=== PATIENT | male | born 1975 | race Two or more races ===

== ENCOUNTER 2019-03-06 18:44 | Inpatient (IN) | payer OTHER ==
[2019-03-06 21:36] VITALS: BMI 20.9
--- NOTE | 2019-03-06 22:15 | HP ---
COWS - Scale Resting Pulse: 0= [place] 80 or Below Sweatin=Flushed/Facial Moisture Restless Observation: 1= Difficult to Sit Still Pupil Size: 1= Pupils >than Normal Bone or Joint Aches: 2= Severe Diffuse Aches Runny Nose/ Eye Tearin= Nasal Congestion GI Upset > 30mins: 2= Nausea/Diarrhea Tremor Observation: 2= Slight Tremor Visible Yawning Observation: 1= 1-2x During Session Anxiety or Irritability: 1=Feels Anxious/Irritable Goose Flesh Skin: 0=Smooth Skin COWS Score: 13 CIWA Score Nausea/Vomitin Muscle Tremors: 2 Anxiety: 2 Agitation: 2 Paroxysmal Sweats: 1-Minimal Palms Moist Orientation: 0-Oriented Tacttile Disturbances: 3-Moderate Itch/Numb/Burn Auditory Disturbances: 2-Mild Harshness/Frighten Visual Disturbances: 2-Mild Sensitivity Headache: 2-Mild CIWA-Ar Total Score: 18 - Admission Criteria OASAS Guidelines: Admission for Medically Managed Detox: Requires at least one of the followin. CIWA greater than 12 2. Seizures within the past 24 hours 3. Delirium tremens within the past 24 hours 4. Hallucinations within the past 24 hours 5. Acute intervention needed for co occurring medical disorder 6. Acute intervention needed for co occurring psychiatric disorder 7. Severe withdrawal that cannot be handled at a lower level of care (continued vomiting, continued diarrhea, abnormal vital signs) requiring intravenous medication and/or fluids 8. Admission ROS [facility] - HPI Chief Complaint: DEPENDENT ON HEROIN, ETOH, COCAINE AND MARIJUANA Allergies/Adverse Reactions: Allergies Allergy/AdvReac Type Severity Reaction Status Date / Time No Known Allergies Allergy Verified 03/06/19 21:31 History of Present Illness: THE PT. IS REQUESTING ADMISSION TO THE DETOX UNIT AND CAME FOR MEDICAL CLEARANCE AND H AND PE Exam Limitations: No Limitations - Ebola screening Have you traveled outside of the country in the last 21 days: No Have you had contact with anyone from an Ebola affected area: No Have you been sick,other than usual withdrawal symptoms: No Do you have a fever: No - Review of Systems Constitutional: See HPI, Loss of Appetite, Malaise, Weakness, Unexplained wgt Loss EENT: reports: See HPI Respiratory: reports: See HPI Cardiac: reports: See HPI GI: reports: See HPI, Nausea, Poor Appetite, Poor Fluid Intake, Abdominal cramping : reports: See HPI Musculoskeletal: reports: See HPI, Muscle Pain, Muscle Weakness Integumentary: reports: See HPI, Pruritus, Sweating Neuro: reports: See HPI, Headache, Tremors, Weakness Endocrine: reports: See HPI Hematology: reports: See HPI Psychiatric: reports: Judgement Intact, Orientated x3, Anxious, Depressed Patient History - Patient Medical History Hx Anemia: Yes (possible ) Hx Asthma: No Hx Chronic Obstructive Pulmonary Disease (COPD): No Hx Cancer: No Hx Cardiac Disorders: No Hx Congestive Heart Failure: No Hx Hypertension: No Hx Hypercholesterolemia: No Hx Pacemaker: No HX Cerebrovascular Accident: No Hx Seizures: No Hx Dementia: No Hx Diabetes: No Hx Gastrointestinal Disorders: No Hx Liver Disease: No Hx Genitourinary Disorders: No Hx Sexually Transmitted Disorders: No Hx Renal Disease (ESRD): No Hx Thyroid Disease: No Hx Human Immunodeficiency Virus (HIV): No Hx Hepatitis C: No Hx Depression: Yes (AND ANXIETY) Hx Suicide Attempt: No Hx Schizophrenia: Yes (on medication) - Patient Surgical History Past Surgical History: Yes Hx Neurologic Surgery: No Hx Cataract Extraction: No Hx Cardiac Surgery: No Hx Lung Surgery: No Hx Breast Surgery: No Hx Breast Biopsy: No Hx Abdominal Surgery: No Hx Appendectomy: No Hx Cholecystectomy: No Hx Genitourinary Surgery: No Hx Section: No Hx Orthopedic Surgery: Yes (LEFT LEG) Anesthesia Reaction: No - PPD History Date: 02/08/16 Results: 0 mm - Smoking Cessation Smoking history: Current every day smoker Have you smoked in the past 12 months: Yes Aproximately how many cigarettes per day: 20 Cigars Per Day: 0 Hx Chewing Tobacco Use: No Initiated information on smoking cessation: Yes 'Breaking Loose' booklet given: 03/06/19 - Substance & Tx. History Hx Alcohol Use: Yes Hx Substance Use: Yes Substance Use Type: Alcohol, Cocaine, Heroin, Marijuana Hx Substance Use Treatment: Yes - Substances abused Alcohol Substance route: Oral Frequency: Daily Amount used: 2 PINTS VODKA Age of first use: 18 Date of last use: 03/06/19 Cocaine Substance route: Smoking Frequency: Daily Amount used: 3 BAGS Age of first use: 25 Date of last use: 03/05/19 Heroin Substance route: Inhalation Frequency: Daily Amount used: 4 B/D Age of first use: 35 Date of last use: 03/06/19 Marijuana/Hashish Substance route: Smoking Frequency: Daily Amount used: 2 B/D Age of first use: 25 Date of last use: 03/06/19 Family Disease History - Family Disease History Family Disease History: Other: Father (alcohol dependence ) Admission Physical Exam [facility] - Vital Signs Vital Signs: Vital Signs - 24 hr 03/06/19 03/06/19 21:29 21:51 Temperature 97.1 F L 97.1 F L Pulse Rate 62 62 Respiratory 18 18 Rate Blood Pressure 111/76 111/76 - Physical General Appearance: Yes: No Apparent Distress, Appropriately Dressed, Thin, Tremorous, Sweating, Anxious HEENTM: Yes: Hearing grossly Normal, Normocephalic, Normal Voice, CARYN, Pharynx Normal Respiratory: Yes: Chest Non-Tender, Lungs Clear, Normal Breath Sounds, No Respiratory Distress, No Accessory Muscle Use Neck: Yes: No masses,lesions,Nodules, Supple, Trachea in good position Breast: Yes: Breast Exam Deferred, Axillae without masses Cardiology: Yes: Regular Rhythm, Regular Rate, S1, S2 Abdominal: Yes: Normal Bowel Sounds, Non Tender, Flat, Soft Back: Yes: Normal Inspection Musculoskeletal: Yes: full range of Motion, Gait Steady, Pelvis Stable, Muscle Pain, Muscle weakness Extremities: Yes: Normal Capillary Refill, Normal Range of Motion, Non-Tender, Tremors Neurological: Yes: machine fixer II-XII NML intact, Fully Oriented, Alert, Motor Strength 5/5, Normal Mood/Affect, Normal Response Integumentary: Yes: Normal Color, Warm, Moist Lymphatic: Yes: Within Normal Limits - Diagnostic (1) Heroin dependence Current Visit: Yes Status: Chronic (2) Anxiety and depression Current Visit: Yes Status: Chronic (3) Alcohol dependence with uncomplicated withdrawal Current Visit: No Status: Chronic (4) Nicotine dependence Current Visit: No Status: Acute (5) Cannabis dependence, uncomplicated Current Visit: No Status: Chronic (6) Cocaine dependence, uncomplicated Current Visit: No Status: Chronic (7) Schizophrenia Current Visit: No Status: Chronic Qualifiers: Schizophrenia type: unspecified Qualified Code(s): F20.9 - Schizophrenia, unspecified Cleared for Admission [facility] - Detox or Rehab [facility] Level of Care: Medically Supervised Detox Regimen/Protocol: Methadone/Librium Breathalyzer - Breathalyzer Breathalyzer: 0 Urine Drug Screen - Test Device Lot number: [id number] Expiration date: 10/07/20 - Control Is test valid?: Yes - Results Drug screen NEGATIVE: No Urine drug screen results: THC-Marijuana, LADAN-Cocaine, MET-Methamphetamine, MTD- Methadone, BZO-Benzodiazepines Inpatient Rehab Admission - Rehab Decision to Admit Inpatient rehab admission?: No
[2019-03-06] MEDS ORDERED: MENTHOL/PHENOL 1 EACH UD MM PRN (22:20)
[2019-03-06] MEDS ORDERED: NICOTINE POLACRILEX 4 MG GUM BUC PRN (22:20)
[2019-03-06] MEDS ORDERED: cloNIDine HCL 0.1 MG TABLET PO PRN (22:20)
[2019-03-06] MEDS ORDERED: ACETAMINOPHEN 325 MG TABLET (FP) PO PRN ×2 (22:20)
[2019-03-06] MEDS ORDERED: hydrOXYzine PAMOATE 25 MG CAPSULE (FP) PO PRN (22:20)
[2019-03-06] MEDS ORDERED: BISMUTH SUBSALICYLATE 524 MG/30 ML UD PO PRN (22:20)
[2019-03-06] MEDS ORDERED: MAGNESIUM HYDROX 2400MG/30ML ORAL SUSPENSION 30 ML CUP PO PRN (22:20)
[2019-03-06] MEDS ORDERED: chlordiazePOXIDE HCL 10 MG CAPSULE PO PRN (22:20)
[2019-03-06] MEDS ORDERED: METHOCARBAMOL 500 MG TABLET PO PRN (22:20)
[2019-03-06] MEDS ORDERED: MAGNESIUM CITRATE 300 ML BOTTLE PO PRN (22:20)
[2019-03-06] MEDS ORDERED: METHADONE HCL 10 MG TABLET (FOR DETOX USE ONLY) PO ONE (23:00)
[2019-03-06] MEDS: chlordiazePOXIDE HCL 25 MG CAPSULE PO SCH (23:44)
[2019-03-07] MEDS: chlordiazePOXIDE HCL 25 MG CAPSULE PO SCH ×2 (05:07→13:00)
[2019-03-07 09:54] LABS: ALBUMIN 3.5 g/dl (3.4-5.0); ALK PHOS 87 U/L (45-117); ANION GAP 4 MMOL/L (8-16); BILIRUBIN,TOTAL 0.6 mg/dL (0.2-1); BLOOD UREA NITROGEN 19 mg/dL (7-18); CALCIUM 9.2 mg/dL (8.5-10.1); CHLORIDE 101 mmol/L (98-107); CO2 31 mmol/L (21-32); CREATININE 1.2 mg/dL (0.55-1.3); GLUCOSE,RANDOM 83 mg/dL (74-106); POTASSIUM 4.8 mmol/L (3.5-5.1); SGOT/AST 24 U/L (15-37); SGPT/ALT 28 U/L (13-61); SODIUM 136 mmol/L (136-145); TOT PROT 6.7 g/dl (6.4-8.2)
[2019-03-07 09:58] LABS: HEMATOCRIT 41.9 % (35.4-49); HEMOGLOBIN 13.9 GM/dL (11.7-16.9); MCH 29.7 pg (25.7-33.7); MCHC 33.3 g/dl (32.0-35.9); MEAN CELL VOLUME 89.4 fl (80-96); MEAN PLT VOLUME 8.8 fl (7.5-11.1); PLATELET COUNT 223 K/MM3 (134-434); RBC 4.69 M/mm3 (4.00-5.60); RDW 14.9 % (11.9-15.9); WHITE BLOOD COUNT 3.7 K/mm3 (4.0-10.0)
[2019-03-07] MEDS ORDERED: METHADONE HCL 5 MG TABLET (FOR DETOX USE ONLY) PO ONE (10:00)
[2019-03-07] MEDS: PRENATAL VITAMINS W/ FOLIC ACID TABLET (FP) PO SCH (10:12)
[2019-03-07] MEDS: NICOTINE 21 MG/24 HOURS TOPICAL PATCH TD SCH (10:12)
--- NOTE | 2019-03-07 11:08 | PN ---
[facility] CIWA - CIWA Score Nausea/Vomitin-No Nausea/No Vomiting Muscle Tremors: 3 Anxiety: 3 Agitation: 3 Paroxysmal Sweats: 3 Orientation: 0-Oriented Tacttile Disturbances: 0-None Auditory Disturbances: 0-None Visual Disturbances: 0-None Headache: 0-None Present CIWA-Ar Total Score: 12 [facility] COWS - Scale Resting Pulse: 0= [place] 80 or Below Sweatin=Flushed/Facial Moisture Restless Observation: 1= Difficult to Sit Still Pupil Size: 0= Normal to Room Light Bone or Joint Aches: 2= Severe Diffuse Aches Runny Nose/ Eye Tearin= Nasal Congestion GI Upset > 30mins: 2= Nausea/Diarrhea Tremor Observation of Outstretched Hands: 2= Slight Tremor Visible Yawning Observation: 2= >3x During Session Anxiety or Irritability: 2=Irritable/Anxious Goose Flesh Skin: 0=Smooth Skin COWS Score: 14 S Progress Note (SOAP) Subjective: sweats shakes interrupted sleep body aches irritable Objective: 03/07/19 11:15 Vital Signs Temperature 97.7 F 03/07/19 10:27 Pulse Rate 64 03/07/19 10:27 Respiratory Rate 16 03/07/19 10:27 Blood Pressure 114/80 03/07/19 10:27 O2 Sat by Pulse Oximetry (%) Laboratory Tests 03/07/19 03/07/19 07:00 07:00 WBC 3.7 L RBC 4.69 Hgb 13.9 Hct 41.9 MCV 89.4 MCH 29.7 MCHC 33.3 RDW 14.9 Plt Count 223 MPV 8.8 Sodium 136 Potassium 4.8 Chloride 101 Carbon Dioxide 31 Anion Gap 4 L BUN 19 H Creatinine 1.2 Creat Clearance w eGFR 66.08 Random Glucose 83 Calcium 9.2 Total Bilirubin 0.6 AST 24 ALT 28 Alkaline Phosphatase 87 Total Protein 6.7 Albumin 3.5 aaox3 ambulating no acute distress Assessment: 03/07/19 11:17 withdrawal sx Plan: continue detox increase fluids
[2019-03-07] MEDS: IBUPROFEN 400 MG TABLET (FP) PO PRN ×2 (12:59→18:58)
[2019-03-07] MEDS: MAG HYDROX/AL HYDROX/SIMETH 30 ML UNIT-DOSE CUP PO PRN (18:58)
[2019-03-07] MEDS: THIAMINE HCL 100 MG TABLET (FP) PO SCH (22:19)
[2019-03-07] MEDS: chlordiazePOXIDE 5 MG CAPSULE PO SCH (22:19)
[2019-03-07] MEDS: MELATONIN 5 MG TABLETS PO PRN (22:20)
[2019-03-08] MEDS: IBUPROFEN 400 MG TABLET (FP) PO PRN (01:02)
[2019-03-08] MEDS: MAG HYDROX/AL HYDROX/SIMETH 30 ML UNIT-DOSE CUP PO PRN (01:03)
[2019-03-08] MEDS: chlordiazePOXIDE 5 MG CAPSULE PO SCH ×2 (05:50→13:42)
[2019-03-08] MEDS ORDERED: METHADONE HCL 10 MG TABLET (FOR DETOX USE ONLY) PO ONE (10:00)
[2019-03-08] MEDS: NICOTINE 21 MG/24 HOURS TOPICAL PATCH TD SCH (10:02)
[2019-03-08] MEDS: PRENATAL VITAMINS W/ FOLIC ACID TABLET (FP) PO SCH (10:03)
--- NOTE | 2019-03-08 10:59 | PN ---
[facility] CIWA - CIWA Score Nausea/Vomitin-No Nausea/No Vomiting Muscle Tremors: 3 Anxiety: 2 Agitation: 3 Paroxysmal Sweats: 3 Orientation: 0-Oriented Tacttile Disturbances: 0-None Auditory Disturbances: 0-None Visual Disturbances: 0-None Headache: 0-None Present CIWA-Ar Total Score: 11 S COWS - Scale Resting Pulse: 0= [place] 80 or Below Sweatin=Flushed/Facial Moisture Restless Observation: 1= Difficult to Sit Still Pupil Size: 0= Normal to Room Light Bone or Joint Aches: 2= Severe Diffuse Aches Runny Nose/ Eye Tearin= None GI Upset > 30mins: 0= None Tremor Observation of Outstretched Hands: 1= Tremor [place], Not Seen Yawning Observation: 1= 1-2x During Session Anxiety or Irritability: 1=Feels Anxious/Irritable Goose Flesh Skin: 0=Smooth Skin COWS Score: 8 [facility] Progress Note (SOAP) Subjective: foot pain sweats shakes body aches feet pain Objective: 03/08/19 10:58 Vital Signs Temperature 97.3 F L 03/08/19 09:09 Pulse Rate 62 03/08/19 09:09 Respiratory Rate 18 03/08/19 09:09 Blood Pressure 124/61 03/08/19 09:09 O2 Sat by Pulse Oximetry (%) Laboratory Tests 03/07/19 03/07/19 03/07/19 07:00 07:00 07:00 WBC 3.7 L RBC 4.69 Hgb 13.9 Hct 41.9 MCV 89.4 MCH 29.7 MCHC 33.3 RDW 14.9 Plt Count 223 MPV 8.8 Sodium 136 Potassium 4.8 Chloride 101 Carbon Dioxide 31 Anion Gap 4 L BUN 19 H Creatinine 1.2 Creat Clearance w eGFR 66.08 Random Glucose 83 Calcium 9.2 Total Bilirubin 0.6 AST 24 ALT 28 Alkaline Phosphatase 87 Total Protein 6.7 Albumin 3.5 RPR Titer Nonreactive aaox3 ambulating no acute distress Assessment: 03/08/19 10:59 withdrawal sx Plan: continue detox increase fluids motrin 800mg tid prn
[2019-03-08] MEDS ORDERED: IBUPROFEN 400 MG TABLET (FP) PO PRN (11:00)
[2019-03-08] MEDS ORDERED: chlordiazePOXIDE HCL 10 MG CAPSULE PO PRN (21:00)
[2019-03-08] MEDS: THIAMINE HCL 100 MG TABLET (FP) PO SCH (22:15)
[2019-03-08] MEDS: MELATONIN 5 MG TABLETS PO PRN (22:15)
[2019-03-08] MEDS: chlordiazePOXIDE HCL 10 MG CAPSULE PO SCH (22:15)
[2019-03-09] MEDS: MAG HYDROX/AL HYDROX/SIMETH 30 ML UNIT-DOSE CUP PO PRN (01:32)
[2019-03-09] MEDS: chlordiazePOXIDE HCL 10 MG CAPSULE PO SCH ×2 (05:50→22:14)
[2019-03-09] MEDS ORDERED: METHADONE HCL 5 MG TABLET (FOR DETOX USE ONLY) PO ONE (06:00)
--- NOTE | 2019-03-09 09:21 | DS ---
[facility] Detox Discharge Summary Admission Date: 03/06/19 Discharge Date: 03/09/19 - History Present History: Alcohol Dependence, Cannabis Dependence, Cocaine Dependence, Opioid Dependence - Physical Exam Results Vital Signs: Vital Signs Temperature 97.3 F L 03/09/19 06:29 Pulse Rate 50 L 03/09/19 06:29 Respiratory Rate 16 03/09/19 06:29 Blood Pressure 141/91 03/09/19 06:29 O2 Sat by Pulse Oximetry (%) - Treatment Hospital Course: Detox Protocol Followed, Detoxed Safely, Responded well, Discharged Condition Good, Rehab Referral Accepted - Medication Discharge Medications: Ambulatory Orders Divalproex [Depakote -] 500 mg PO BID #60 tablet.ec 02/07/16 Haloperidol [Haldol -] 5 mg PO DAILY #30 tablet 02/07/16 Quetiapine Fumarate [Seroquel -] 100 mg PO HS #30 tab 03/03/16 - Diagnosis (1) Anxiety and depression Current Visit: Yes Status: Chronic (2) Heroin dependence Current Visit: Yes Status: Chronic (3) Nicotine dependence Current Visit: Yes Status: Chronic Qualifiers: Nicotine product type: cigarettes Substance use status: uncomplicated Qualified Code(s): F17.210 - Nicotine dependence, cigarettes, uncomplicated (4) Alcohol dependence with uncomplicated withdrawal Current Visit: Yes Status: Chronic (5) Cannabis dependence, uncomplicated Current Visit: Yes Status: Chronic (6) Cocaine dependence, uncomplicated Current Visit: Yes Status: Chronic (7) Schizophrenia Current Visit: No Status: Chronic Qualifiers: Schizophrenia type: unspecified Qualified Code(s): F20.9 - Schizophrenia, unspecified - AMA Did Patient Leave Against Medical Advice: No ([facility])
[2019-03-09] MEDS ORDERED: chlordiazePOXIDE HCL 10 MG CAPSULE PO ONE (10:00)
[2019-03-09] MEDS: PRENATAL VITAMINS W/ FOLIC ACID TABLET (FP) PO SCH (10:15)
[2019-03-09] MEDS: NICOTINE 21 MG/24 HOURS TOPICAL PATCH TD SCH (10:18)
--- NOTE | 2019-03-09 11:19 | CONSULT ---
[facility] Psychiatric Consult - Data Date of interview: 03/09/19 Identifying data: Mr Arango is a 43 years old [place]-born male, unemployed receiving SSI, living in a room in [facility] seeking detox treatment for alcohol opioid, cocaine and cannabis Substance Abuse History: Reports history of alcohol, heroin, cocaine and marijuana use. Refer to addiction counselor's summary for further information Medical History: Significant for anemia, history of surgery on left leg. Smokes cigarettes 1 ppd Psychiatric History: Reports that his first psychiatric contact was at age 20 when he was admitted to [facility] for hearing voices and feeling paranoid like he was being followed. He was diagnosed diagnosed with Paranoid Schizophrenia and prescribed Haldol. Denies any subsequent psychiatric hospitalization. Reports sub optimal adherence to OPD care and medications. Reports he only received outpatient psychiatric treatment at [facility] where he attended for 6 years after his discharge from [facility]. Inpatient detox/rehab and residential program were the places where he has been receiving psychiatric care since. Reports that he was last prescribed medications [facility]. This is verified by external medication search showing scripts for 5 days supply of Haldol 5mg BID, Depakote 500 mg BID and Cogentin 1 mg BID prescribed by Tianna Harrison and filled on 02/27/19 at [facility]. Denies previous suicidal attempt. At present, denies experiencing psychotic, depressive symptoms, S/H ideations. However, reports sleeping poorly Physical/Sexual Abuse/Trauma History: Denies history of emotional, physical or sexual abuse as well as DV relationship. No service Additional Comment: Reports history of a few misdemeanor arrests on charges of drug possession. Denies being on probation or having an open case Mental Status Exam - Mental Status Exam Alert and Oriented to: Place, Person Cognitive Function: Fair Patient Appearance: Well Groomed Mood: Anxious Affect: Appropriate Patient Behavior: Cooperative Speech Pattern: Clear Voice Loudness: Normal Thought Process: Intact, Goal Oriented Thought Disorder: Not Present Hallucinations: Denies Suicidal Ideation: Denies Homicidal Ideation: Denies Insight/Judgement: Poor Sleep: Poorly Appetite: Poor Muscle strength/Tone: Normal Gait/Station: Normal Psychiatric Findings - Problem List ([place] 1, 2,3) (1) Paranoid schizophrenia Current Visit: Yes Status: Chronic (2) Substance-induced anxiety disorder Current Visit: Yes Status: Acute (3) Substance-induced sleep disorder Current Visit: Yes Status: Acute (4) Alcohol dependence with uncomplicated withdrawal Current Visit: Yes Status: Acute (5) Uncomplicated opioid dependence Current Visit: Yes Status: Acute (6) Cocaine dependence, uncomplicated Current Visit: Yes Status: Acute (7) Cannabis dependence, uncomplicated Current Visit: Yes Status: Acute (8) Nicotine dependence Current Visit: Yes Status: Chronic Qualifiers: Nicotine product type: cigarettes Substance use status: uncomplicated Qualified Code(s): F17.210 - Nicotine dependence, cigarettes, uncomplicated (9) Anemia Current Visit: Yes Status: Resolved - Initial Treatment Plan Initial Treatment Plan: 1) Resume Haldol 5 mg po BID, Cogentin 1 mg po BID and Depakote 500 mg po BID. 2) Continue inpatient detoxification
[2019-03-09] MEDS: BENZTROPINE MESYLATE 1 MG TABLET (FP) PO SCH ×2 (11:50→22:14)
[2019-03-09] MEDS: HALOPERIDOL 5 MG TABLET (FP) PO SCH ×2 (11:50→22:14)
[2019-03-09] MEDS: DIVALPROEX SODIUM 500 MG TABLET E.C. PO SCH ×2 (11:50→22:14)
[2019-03-09] MEDS: THIAMINE HCL 100 MG TABLET (FP) PO SCH (22:14)
[2019-03-09] MEDS: MELATONIN 5 MG TABLETS PO PRN (22:15)
--- NOTE | 2019-03-10 07:40 | PN ---
[facility] Progress Note Note: Patient is scheduled for discharge today. Scripts for 30 days supply of medications(Haldol 5 mg/bid, Depakote 500 mg/bid, Cogentin 1 mg/bid) are electronically transmitted to [facility] at [address] [place] [address]
[2019-03-10 09:30] VITALS: BP 122/72; PULSE 76; TEMP 97.7
[2019-03-10] MEDS: HALOPERIDOL 5 MG TABLET (FP) PO SCH (09:38)
[2019-03-10] MEDS: DIVALPROEX SODIUM 500 MG TABLET E.C. PO SCH (09:38)
[2019-03-10] MEDS: PRENATAL VITAMINS W/ FOLIC ACID TABLET (FP) PO SCH (09:38)
[2019-03-10] MEDS: BENZTROPINE MESYLATE 1 MG TABLET (FP) PO SCH (09:39)
[2019-03-10] MEDS: NICOTINE 21 MG/24 HOURS TOPICAL PATCH TD SCH (10:55)
[2019-03-10] MEDS: chlordiazePOXIDE HCL 10 MG CAPSULE PO SCH (10:57)
--- NOTE | 2019-03-10 18:53 | DS ---
[facility] Detox Discharge Summary Admission Date: 03/06/19 Discharge Date: 03/10/19 - History Present History: Alcohol Dependence, Cannabis Dependence, Cocaine Dependence, Opioid Dependence Additional Comments: PATIENT GOING TO [facility] ([place], [place]) FOR AFTERCARE. PATIENT WAS DISCHARGED FROM DISCHARGED FROM DETOX UNIT IN STABLE MEDICAL CONDITION. Pertinent Past History: History Of Anemia, Depression, Anxiety, (Paranoid) Schizophrenia. - Physical Exam Results Vital Signs: Vital Signs Temperature 97.7 F 03/10/19 09:30 Pulse Rate 76 03/10/19 09:30 Respiratory Rate 16 03/10/19 09:30 Blood Pressure 122/72 03/10/19 09:30 O2 Sat by Pulse Oximetry (%) Pertinent Admission Physical Exam Findings: WITHDRAWAL SYMPTOMS. Laboratory Tests 03/07/19 03/07/19 03/07/19 07:00 07:00 07:00 WBC 3.7 L RBC 4.69 Hgb 13.9 Hct 41.9 MCV 89.4 MCH 29.7 MCHC 33.3 RDW 14.9 Plt Count 223 MPV 8.8 Sodium 136 Potassium 4.8 Chloride 101 Carbon Dioxide 31 Anion Gap 4 L BUN 19 H Creatinine 1.2 Creat Clearance w eGFR 66.08 Random Glucose 83 Calcium 9.2 Total Bilirubin 0.6 AST 24 ALT 28 Alkaline Phosphatase 87 Total Protein 6.7 Albumin 3.5 RPR Titer Nonreactive LABS NOTED. - Treatment Hospital Course: Detox Protocol Followed, Detoxed Safely, Responded well, Discharged Condition Good, Rehab Referral Accepted Patient has Accepted a Rehab Referral to: [facility] ([place], [place]). - Medication Discharge Medications: Ambulatory Orders Divalproex [Depakote -] 500 mg PO BID #60 tablet.ec 02/07/16 Haloperidol [Haldol -] 5 mg PO DAILY #30 tablet 02/07/16 Quetiapine Fumarate [Seroquel -] 100 mg PO HS #30 tab 03/03/16 Benztropine Mesylate [Cogentin -] 1 mg PO BID #60 tablet 03/10/19 Divalproex [Depakote -] 500 mg PO BID #60 tablet.ec 03/10/19 Haloperidol [Haldol -] 5 mg PO BID #60 tablet 03/10/19 - Diagnosis (1) Alcohol dependence with uncomplicated withdrawal Status: Acute (2) Cannabis dependence, uncomplicated Status: Acute (3) Cocaine dependence, uncomplicated Status: Acute (4) Anxiety and depression Status: Chronic (5) Heroin dependence Status: Chronic (6) Nicotine dependence Status: Chronic Qualifiers: Nicotine product type: cigarettes Substance use status: uncomplicated Qualified Code(s): F17.210 - Nicotine dependence, cigarettes, uncomplicated (7) Substance-induced anxiety disorder Status: Acute (8) Substance-induced sleep disorder Status: Acute (9) Paranoid schizophrenia Status: Chronic (10) Anemia Status: Resolved Qualifiers: Anemia type: unspecified type Qualified Code(s): D64.9 - Anemia, unspecified - AMA Did Patient Leave Against Medical Advice: No
== END 2019-03-10 11:27 | disposition home or self-care (01) | DRG 773 ==
LOC: YASAS 18:44 → Y6N 22:40
PROVIDERS: ADMIT Surgery; ATTEND Surgery
PROC: HZ2ZZZZ Detoxification Services for Substance Abuse Treatment (ICD-10-PCS; principal; 2019-03-06)
DX: F11.23 Opioid dependence with withdrawal (principal); F10.230 Alcohol dependence with withdrawal, uncomplicated; F14.20 Cocaine dependence, uncomplicated; F12.20 Cannabis dependence, uncomplicated; F17.210 Nicotine dependence, cigarettes, uncomplicated; F20.0 Paranoid schizophrenia; F19.280 Other psychoactive substance dependence with psychoactive substance-induced anxiety disorder; F19.282 Other psychoactive substance dependence with psychoactive substance-induced sleep disorder; F32.9 Major depressive disorder, single episode, unspecified; F41.8 Other specified anxiety disorders; D64.9 Anemia, unspecified
CPT/HCPCS: 36415; 80053; 85027; 86593

== ENCOUNTER 2019-04-24 16:13 | Inpatient (IN) | payer OTHER ==
[2019-04-24 20:49] VITALS: BMI 22.3
--- NOTE | 2019-04-24 23:01 | HP ---
CIWA Score - Admission Criteria [facility] Guidelines: Admission for Medically Managed Detox: Requires at least one of the followin. CIWA greater than 12 2. Seizures within the past 24 hours 3. Delirium tremens within the past 24 hours 4. Hallucinations within the past 24 hours 5. Acute intervention needed for co occurring medical disorder 6. Acute intervention needed for co occurring psychiatric disorder 7. Severe withdrawal that cannot be handled at a lower level of care (continued vomiting, continued diarrhea, abnormal vital signs) requiring intravenous medication and/or fluids 8. Admission ROS S - HPI Chief Complaint: Seeking admission to Rehab. Allergies/Adverse Reactions: Allergies Allergy/AdvReac Type Severity Reaction Status Date / Time No Known Allergies Allergy Verified 03/06/19 21:31 History of Present Illness: 43 years old male with a long history of alcohol, crack cocaine and marijuana dependence is seeking admission to detox. Patient has been in previous detox. He has history of anemia, depression and schizophrenia. He denies suicidal ideation at this time. Exam Limitations: No Limitations - Ebola screening Have you traveled outside of the country in the last 21 days: No Have you had contact with anyone from an Ebola affected area: No Have you been sick,other than usual withdrawal symptoms: No Do you have a fever: No - Review of Systems Constitutional: No Symptoms Reported EENT: reports: No Symptoms Reported Respiratory: reports: No Symptoms reported Cardiac: reports: No Symptoms Reported GI: reports: No Symptoms Reported : reports: No Symptoms Reported Musculoskeletal: reports: No Symptoms Reported Integumentary: reports: No Symptoms Reported Neuro: reports: No Symptoms reported Endocrine: reports: No Symptoms Reported Hematology: reports: No Symptoms Reported Psychiatric: reports: No Sypmtoms Reported, Mood/Affect Appropiate Other Systems: Reviewed and Negative Patient History - Patient Medical History Hx Anemia: Yes (Ferrous Sulfate) Hx Asthma: No Hx Chronic Obstructive Pulmonary Disease (COPD): No Hx Cancer: No Hx Cardiac Disorders: No Hx Congestive Heart Failure: No Hx Hypertension: No Hx Hypercholesterolemia: No Hx Pacemaker: No HX Cerebrovascular Accident: No Hx Seizures: No Hx Dementia: No Hx Diabetes: No Hx Gastrointestinal Disorders: No Hx Liver Disease: No Hx Genitourinary Disorders: No Hx Sexually Transmitted Disorders: No Hx Renal Disease (ESRD): No Hx Thyroid Disease: No Hx Human Immunodeficiency Virus (HIV): No Hx Hepatitis C: No Hx Depression: Yes (Seroquel) Hx Suicide Attempt: No Hx Schizophrenia: Yes (Haldol, cogentin, Depakote) Other Medical History: Anxiety - Patient Surgical History Past Surgical History: Yes Hx Neurologic Surgery: No Hx Cataract Extraction: No Hx Cardiac Surgery: No Hx Lung Surgery: No Hx Breast Surgery: No Hx Breast Biopsy: No Hx Abdominal Surgery: No Hx Appendectomy: No Hx Cholecystectomy: No Hx Genitourinary Surgery: No Hx Section: No Hx Orthopedic Surgery: Yes (LEFT LEG) Anesthesia Reaction: No - PPD History Date: 02/08/16 Results: 0 mm PPD to be Administered?: Yes - Reproductive History Patient is a Female of Child Bearing Age (11 -55 yrs old): No (male) - Smoking Cessation Smoking history: Current every day smoker Have you smoked in the past 12 months: Yes Aproximately how many cigarettes per day: 20 Cigars Per Day: 0 Hx Chewing Tobacco Use: No Initiated information on smoking cessation: Yes 'Breaking Loose' booklet given: 04/25/19 - Substance & Tx. History Hx Alcohol Use: Yes Hx Substance Use: Yes Substance Use Type: Alcohol, Cocaine, Marijuana Hx Substance Use Treatment: Yes - Substances abused Alcohol Substance route: Oral Frequency: Daily Amount used: 2 PINTS VODKA Age of first use: 18 Date of last use: 03/06/19 Cocaine Substance route: Smoking Frequency: Daily Amount used: 3 BAGS Age of first use: 25 Date of last use: 03/05/19 Heroin Substance route: Inhalation Frequency: Daily Amount used: 4 B/D Age of first use: 35 Date of last use: 03/06/19 Marijuana/Hashish Substance route: Smoking Frequency: Daily Amount used: 2 B/D Age of first use: 25 Date of last use: 03/06/19 Family Disease History - Family Disease History Family Disease History: Other: Father (alcohol dependence ) Admission Physical Exam [facility] - Vital Signs Vital Signs: Vital Signs - 24 hr 04/24/19 20:34 Temperature 98.7 F Pulse Rate 68 Respiratory 18 Rate Blood Pressure 136/90 - Physical General Appearance: Yes: Moderate Distress, Tremorous, Irritable HEENTM: Yes: Within Normal Limits Respiratory: Yes: Lungs Clear, Normal Breath Sounds, No Respiratory Distress Neck: Yes: Within Normal Limits Breast: Yes: Breast Exam Deferred Cardiology: Yes: Regular Rhythm, Regular Rate Abdominal: Yes: Normal Bowel Sounds Genitourinary: Yes: Within Normal Limits Back: Yes: Normal Inspection Musculoskeletal: Yes: Within Normal Limits Extremities: Yes: Within Normal Limits Neurological: Yes: Fully Oriented, Alert, Normal Mood/Affect Integumentary: Yes: Warm Lymphatic: Yes: Within Normal Limits - Diagnostic (1) Cocaine dependence Current Visit: Yes Status: Chronic Qualifiers: Substance use status: uncomplicated Qualified Code(s): F14.20 - Cocaine dependence, uncomplicated (2) Cannabis dependence Current Visit: Yes Status: Chronic (3) Anxiety and depression Current Visit: Yes Status: Chronic (4) Nicotine dependence Current Visit: Yes Status: Chronic Qualifiers: Nicotine product type: cigarettes Substance use status: uncomplicated Qualified Code(s): F17.210 - Nicotine dependence, cigarettes, uncomplicated (5) Anemia Current Visit: Yes Status: Chronic Qualifiers: Anemia type: iron deficiency Cleared for Admission S - Detox or Rehab [facility] Level of Care: Observation Bed Claeared for Rehab Admission: Yes Breathalyzer - Breathalyzer Breathalyzer: 0 Urine Drug Screen - Test Device Lot number: [id number] Expiration date: 01/05/21 - Control Is test valid?: Yes - Results Drug screen NEGATIVE: No Urine drug screen results: THC-Marijuana, LADAN-Cocaine Inpatient Rehab Admission - Rehab Decision to Admit Inpatient rehab admission?: Yes - Initial Determination Are CD services needed?: No Free of communicable disease: Yes Not in need of hospitalization: Yes - Rehab Admission Criteria Previous failed treatment: Yes Poor recovery environment: Yes Comorbidities: Yes Lacks judgement: No Patient is meeting Inpatient Rehab admission criteria:: Yes
[2019-04-24] MEDS ORDERED: MAGNESIUM CITRATE 300 ML BOTTLE PO PRN (23:11)
[2019-04-24] MEDS ORDERED: MENTHOL/PHENOL 1 EACH UD MM PRN (23:11)
[2019-04-24] MEDS ORDERED: LOPERAMIDE HCL 2 MG CAPSULE PO PRN (23:11)
[2019-04-24] MEDS ORDERED: P-EPHED 60MG/TRIPROLIDI 2.5MG TABLET PO PRN (23:11)
[2019-04-24] MEDS ORDERED: guaiFENesin 200 MG/10 ML 10 ML UNIT-DOSE CUPS PO PRN (23:11)
[2019-04-24] MEDS ORDERED: NICOTINE POLACRILEX 2 MG GUM BUC PRN (23:11)
[2019-04-24] MEDS ORDERED: MAGNESIUM HYDROX 2400MG/30ML ORAL SUSPENSION 30 ML CUP PO PRN (23:11)
[2019-04-25] MEDS ORDERED: QUEtiapine FUMARATE 100 MG TABLET (FP) PO ONE (01:30)
--- NOTE | 2019-04-25 09:40 | CONSULT ---
[facility] Psychiatric Consult - Data Date of interview: 04/25/19 Admission source: Self-referred Identifying data: Mr Arango is a 43 years old [place]-born male, unemployed receiving SSI, living in a room in [place] seeking detox treatment for alcohol opioid, cocaine and cannabis Substance Abuse History: Reports history of alcohol, heroin, cocaine and marijuana use. Refer to addiction counselor's summary for further information Medical History: Significant for iron deficiency anemia, history of surgery on left leg. Smokes cigarettes 1 ppd Psychiatric History: Patient seen recently by movie writer on 03/09/19 while dmitted to this facility for detox. History remains consistent. He reports that his first psychiatric contact was at age 20 when he was admitted to [facility] for hearing voices and feeling paranoid like he was being followed. He was diagnosed diagnosed with Paranoid Schizophrenia and prescribed Haldol. Denies any subsequent psychiatric hospitalization. Reports sub optimal adherence to OPD care and medications. Reports he only received outpatient psychiatric treatment at [facility] where he attended for 6 years after his discharge from [facility]. Inpatient detox/rehab and residential program were the places he has been receiving psychiatric care since. He last received psychiatric treatment when he was admitted to this facility for inpatient detox from 03/06/19 to 03/10/19 at which time he saw movie writer and he was prescribed Haldol 5 mg/bid, Depakote 500 mg/bid, Cogentin 1 mg/bid and Seroquel 100 mg/hs. Told movie writer that he relapsed soon after discharge and he did not fill scripts for his medications. Denies previous suicidal attempt. At present , denies experiencing psychotic, depressive symptoms, S/H ideations. However, reports sleeping poorly Physical/Sexual Abuse/Trauma History: Denies history of emotional, physical or sexual abuse as well as DV relationship. No service Additional Comment: Reports history of a few misdemeanor arrests on charges of drug possession. Denies being on probation or having an open case Mental Status Exam - Mental Status Exam Alert and Oriented to: Time, Place, Person Cognitive Function: Fair Patient Appearance: Well Groomed Mood: Hopeful, Euthymic Patient Behavior: Cooperative Speech Pattern: Clear Thought Process: Intact Hallucinations: None Suicidal Ideation: Denies Homicidal Ideation: Denies Insight/Judgement: Fair Sleep: Poorly Appetite: Good Muscle strength/Tone: Normal Gait/Station: Normal Psychiatric Findings - Problem List ([place] 1, 2,3) (1) Paranoid schizophrenia Current Visit: No Status: Chronic (2) Substance-induced sleep disorder Current Visit: No Status: Acute (3) Alcohol dependence Current Visit: Yes Status: Acute (4) Opioid dependence Current Visit: Yes Status: Acute (5) Cocaine dependence Current Visit: Yes Status: Acute Qualifiers: Substance use status: uncomplicated Qualified Code(s): F14.20 - Cocaine dependence, uncomplicated (6) Cannabis dependence Current Visit: Yes Status: Acute (7) Nicotine dependence Current Visit: Yes Status: Chronic Qualifiers: Nicotine product type: cigarettes Substance use status: uncomplicated Qualified Code(s): F17.210 - Nicotine dependence, cigarettes, uncomplicated (8) Anemia Current Visit: Yes Status: Resolved Qualifiers: Anemia type: iron deficiency - Initial Treatment Plan Initial Treatment Plan: 1) Resume Haldol 5 mg po BID, Depakote 500 mg po BID, Seroquel 100 mg po HS and Cogentin 100 mg po HS. 2) Continue inpatient rehabilitation
[2019-04-25] MEDS: NICOTINE 21 MG/24 HOURS TOPICAL PATCH TD SCH (09:50)
[2019-04-25] MEDS: PRENATAL VITAMINS W/ FOLIC ACID TABLET (FP) PO SCH (09:51)
[2019-04-25] MEDS: IBUPROFEN 400 MG TABLET (FP) PO PRN (10:59)
[2019-04-25] MEDS: DIVALPROEX SODIUM 500 MG TABLET E.C. PO SCH ×2 (11:00→22:03)
[2019-04-25] MEDS: BENZTROPINE MESYLATE 1 MG TABLET (FP) PO SCH ×2 (11:00→22:03)
[2019-04-25] MEDS: HALOPERIDOL 5 MG TABLET (FP) PO SCH ×2 (11:00→22:02)
[2019-04-25] MEDS ORDERED: TUBERCULIN PPD 5 TU/0.1ML VIAL ID ONE (15:23)
[2019-04-25] MEDS: MELATONIN 5 MG TABLETS PO PRN (22:02)
[2019-04-25] MEDS: THIAMINE HCL 100 MG TABLET (FP) PO SCH (22:03)
[2019-04-25] MEDS: QUEtiapine FUMARATE 100 MG TABLET (FP) PO SCH (22:04)
[2019-04-26] MEDS: IBUPROFEN 400 MG TABLET (FP) PO PRN ×2 (06:50→21:16)
[2019-04-26] MEDS: DIVALPROEX SODIUM 500 MG TABLET E.C. PO SCH ×2 (10:09→21:15)
[2019-04-26] MEDS: PRENATAL VITAMINS W/ FOLIC ACID TABLET (FP) PO SCH (10:09)
[2019-04-26] MEDS: HALOPERIDOL 5 MG TABLET (FP) PO SCH ×2 (10:09→21:15)
[2019-04-26] MEDS: BENZTROPINE MESYLATE 1 MG TABLET (FP) PO SCH ×2 (10:09→21:15)
[2019-04-26] MEDS: ACETAMINOPHEN 325 MG TABLET (FP) PO PRN ×2 (10:11→17:45)
[2019-04-26] MEDS: MAG HYDROX/AL HYDROX/SIMETH 30 ML UNIT-DOSE CUP PO PRN ×2 (10:11→17:45)
[2019-04-26] MEDS: NICOTINE 21 MG/24 HOURS TOPICAL PATCH TD SCH (11:00)
--- NOTE | 2019-04-26 15:53 | PN ---
[facility] Progress Note Note: C/O ITCHY FEET AND WANTS CREAM. Vital Signs - 24 hr 04/26/19 04/26/19 04/26/19 00:30 03:30 06:42 Temperature 97.8 F Pulse Rate 60 Respiratory 18 18 16 Rate Blood Pressure 129/79 Laboratory Tests 04/25/19 08:20 Valproic Acid 5.2 L FEET: A:TINEA PEDIS PLAN:TINACTIN CREAM APPLY DIRECTED.
[2019-04-26] MEDS: QUEtiapine FUMARATE 100 MG TABLET (FP) PO SCH (21:15)
[2019-04-26] MEDS: THIAMINE HCL 100 MG TABLET (FP) PO SCH (21:15)
[2019-04-26] MEDS: MELATONIN 5 MG TABLETS PO PRN (21:16)
[2019-04-26] MEDS: TOLNAFTATE 1% CREAM 15 GM TUBE TP SCH (21:18)
[2019-04-27] MEDS: MAG HYDROX/AL HYDROX/SIMETH 30 ML UNIT-DOSE CUP PO PRN ×3 (01:25→21:29)
[2019-04-27] MEDS: IBUPROFEN 400 MG TABLET (FP) PO PRN (06:46)
[2019-04-27] MEDS: PRENATAL VITAMINS W/ FOLIC ACID TABLET (FP) PO SCH (09:51)
[2019-04-27] MEDS: DIVALPROEX SODIUM 500 MG TABLET E.C. PO SCH ×2 (09:51→21:27)
[2019-04-27] MEDS: BENZTROPINE MESYLATE 1 MG TABLET (FP) PO SCH ×2 (09:51→21:27)
[2019-04-27] MEDS: HALOPERIDOL 5 MG TABLET (FP) PO SCH ×2 (09:51→21:27)
[2019-04-27] MEDS: ACETAMINOPHEN 325 MG TABLET (FP) PO PRN (09:53)
[2019-04-27] MEDS: TOLNAFTATE 1% CREAM 15 GM TUBE TP SCH ×2 (09:53→21:28)
[2019-04-27] MEDS: NICOTINE 21 MG/24 HOURS TOPICAL PATCH TD SCH (09:54)
--- NOTE | 2019-04-27 11:46 | PN ---
"[facility] Progress Note Note: pt c/o anxiety and wants relief. Search Terms: jhon haas, 1975 Search Date: 04/27/2019 11:43:17 AM The Drug Utilization Report below displays all of the controlled substance prescriptions, if any, that your patient has filled in the last twelve months. The information displayed on this report is compiled from pharmacy submissions to the Department, and accurately reflects the information as submitted by the pharmacies. This report was requested by: Denisa Dong | Reference #: [id number] There are no results for the search terms that you entered. Vital Signs - 24 hr 04/27/19 04/27/19 04/27/19 00:30 03:30 07:04 Temperature 97.4 F L Pulse Rate 48 L Respiratory 18 18 16 Rate Blood Pressure 125/78 Laboratory Tests 04/25/19 08:20 Valproic Acid 5.2 L plan:Vistaril 50 mg po Q4H prn."
[2019-04-27] MEDS: hydrOXYzine PAMOATE 50 MG CAPSULE (FP) PO PRN ×2 (11:53→21:30)
[2019-04-27] MEDS: QUEtiapine FUMARATE 100 MG TABLET (FP) PO SCH (21:27)
[2019-04-27] MEDS: THIAMINE HCL 100 MG TABLET (FP) PO SCH (21:27)
[2019-04-28] MEDS: MAG HYDROX/AL HYDROX/SIMETH 30 ML UNIT-DOSE CUP PO PRN (02:50)
[2019-04-28] MEDS: BENZTROPINE MESYLATE 1 MG TABLET (FP) PO SCH ×2 (09:37→21:32)
[2019-04-28] MEDS: PRENATAL VITAMINS W/ FOLIC ACID TABLET (FP) PO SCH (09:37)
[2019-04-28] MEDS: hydrOXYzine PAMOATE 50 MG CAPSULE (FP) PO PRN ×2 (09:37→21:35)
[2019-04-28] MEDS: DIVALPROEX SODIUM 500 MG TABLET E.C. PO SCH ×2 (09:37→21:32)
[2019-04-28] MEDS: HALOPERIDOL 5 MG TABLET (FP) PO SCH ×2 (09:37→21:32)
[2019-04-28] MEDS: TOLNAFTATE 1% CREAM 15 GM TUBE TP SCH ×2 (09:38→21:35)
[2019-04-28] MEDS: NICOTINE 21 MG/24 HOURS TOPICAL PATCH TD SCH (09:38)
[2019-04-28] MEDS: THIAMINE HCL 100 MG TABLET (FP) PO SCH (21:32)
[2019-04-28] MEDS: QUEtiapine FUMARATE 100 MG TABLET (FP) PO SCH (21:32)
[2019-04-28] MEDS: IBUPROFEN 400 MG TABLET (FP) PO PRN (21:34)
[2019-04-29] MEDS: MAG HYDROX/AL HYDROX/SIMETH 30 ML UNIT-DOSE CUP PO PRN (00:52)
[2019-04-29] MEDS: MELATONIN 5 MG TABLETS PO PRN (00:52)
[2019-04-29 06:52] VITALS: BP 144/82; PULSE 63; TEMP 97.4
[2019-04-29] MEDS: HALOPERIDOL 5 MG TABLET (FP) PO SCH (10:01)
[2019-04-29] MEDS: DIVALPROEX SODIUM 500 MG TABLET E.C. PO SCH (10:01)
[2019-04-29] MEDS: TOLNAFTATE 1% CREAM 15 GM TUBE TP SCH (10:01)
[2019-04-29] MEDS: NICOTINE 21 MG/24 HOURS TOPICAL PATCH TD SCH (10:01)
[2019-04-29] MEDS: PRENATAL VITAMINS W/ FOLIC ACID TABLET (FP) PO SCH (10:01)
[2019-04-29] MEDS: BENZTROPINE MESYLATE 1 MG TABLET (FP) PO SCH (10:01)
[2019-04-29] MEDS: IBUPROFEN 400 MG TABLET (FP) PO PRN (10:02)
[2019-04-29] MEDS: hydrOXYzine PAMOATE 50 MG CAPSULE (FP) PO PRN (10:02)
--- NOTE | 2019-04-29 11:32 | PN ---
[facility] Progress Note Note: patient do not want to complete treatment,stated he is feeling better,would like to go home and plan to visit his mother in [place],all attempts to convince patient to stay with no avail,the high risk of relapsing explained, patient understood,left the unit in stble condition,en hipolito KENT,seen by counselor,
--- NOTE | 2019-04-29 11:38 | PN ---
[facility] Progress Note Note: this is the discharge note fromrehab date of admission 04/24/19 date of discharge 04/29/19 diagnosis cocaine dependence marijuana dependence nicotine dependence heroin abused patient signed release ama Vital Signs Temperature 97.4 F L 04/29/19 06:51 Pulse Rate 63 04/29/19 06:51 Respiratory Rate 16 04/29/19 06:51 Blood Pressure 144/82 04/29/19 06:51 O2 Sat by Pulse Oximetry (%) left unit in stable condition
== END 2019-04-29 11:45 | disposition left against medical advice (07) | DRG 770 ==
LOC: YASAS 16:13 → Y5N 04-25 00:01
PROVIDERS: ADMIT Neuromusculoskeletal Medicine & OMM; ATTEND Neuromusculoskeletal Medicine & OMM
PROC: HZ42ZZZ Group Counseling for Substance Abuse Treatment, Cognitive-Behavioral (ICD-10-PCS; principal; 2019-04-25)
DX: F11.20 Opioid dependence, uncomplicated (principal); F10.20 Alcohol dependence, uncomplicated; F14.20 Cocaine dependence, uncomplicated; F12.20 Cannabis dependence, uncomplicated; F17.210 Nicotine dependence, cigarettes, uncomplicated; F20.0 Paranoid schizophrenia; F41.9 Anxiety disorder, unspecified; F32.9 Major depressive disorder, single episode, unspecified; D50.9 Iron deficiency anemia, unspecified; B35.3 Tinea pedis
CPT/HCPCS: 36415; 80164

== ENCOUNTER 2019-05-15 16:09 | Inpatient (IN) | payer OTHER ==
[2019-05-15 20:58] VITALS: BMI 23.1
[2019-05-16] MEDS ORDERED: MAGNESIUM HYDROX 2400MG/30ML ORAL SUSPENSION 30 ML CUP PO PRN (01:56)
[2019-05-16] MEDS ORDERED: ACETAMINOPHEN 325 MG TABLET (FP) PO PRN (01:56)
[2019-05-16] MEDS ORDERED: cloNIDine HCL 0.1 MG TABLET PO PRN (01:56)
[2019-05-16] MEDS ORDERED: DICYCLOMINE HCL 10 MG CAPSULE PO PRN (01:56)
[2019-05-16] MEDS ORDERED: MAGNESIUM CITRATE 300 ML BOTTLE PO PRN (01:56)
[2019-05-16] MEDS ORDERED: chlordiazePOXIDE HCL 10 MG CAPSULE PO PRN (01:56)
[2019-05-16] MEDS ORDERED: guaiFENesin 200 MG/10 ML 10 ML UNIT-DOSE CUPS PO PRN (01:56)
[2019-05-16] MEDS ORDERED: MENTHOL/PHENOL 1 EACH UD MM PRN (01:56)
[2019-05-16] MEDS ORDERED: METHADONE HCL 10 MG TABLET (FOR DETOX USE ONLY) PO ONE (01:56)
[2019-05-16] MEDS ORDERED: NICOTINE POLACRILEX 2 MG GUM BUC PRN (01:56)
[2019-05-16] MEDS ORDERED: BISMUTH SUBSALICYLATE 524 MG/30 ML UD PO PRN (01:56)
[2019-05-16] MEDS ORDERED: ONDANSETRON *ODT* 4 MG TABLET SL PRN (01:56)
[2019-05-16] MEDS ORDERED: P-EPHED 60MG/TRIPROLIDI 2.5MG TABLET PO PRN (01:56)
[2019-05-16] MEDS ORDERED: MELATONIN 5 MG TABLETS PO PRN (01:56)
[2019-05-16] MEDS ORDERED: IBUPROFEN 400 MG TABLET (FP) PO PRN (01:56)
--- NOTE | 2019-05-16 01:59 | HP ---
COWS - Scale Resting Pulse: 0= TN 80 or Below Sweatin= No chills or Flushing Restless Observation: 5= Unable to Sit Still Pupil Size: 0= Normal to Room Light Bone or Joint Aches: 0= None Runny Nose/ Eye Tearin= None GI Upset > 30mins: 0= None Tremor Observation: 0= None Yawning Observation: 1= 1-2x During Session Anxiety or Irritability: 2=Irritable/Anxious Goose Flesh Skin: 0=Smooth Skin COWS Score: 8 CIWA Score Nausea/Vomitin-No Nausea/No Vomiting Muscle Tremors: None Anxiety: 4-Mod. Anxious/Guarded Agitation: 4-Moderately Restless Paroxysmal Sweats: No Perspiration Orientation: 0-Oriented Tacttile Disturbances: 3-Moderate Itch/Numb/Burn Auditory Disturbances: 0-None Visual Disturbances: 0-None Headache: 0-None Present CIWA-Ar Total Score: 11 - [facility]: Admission for Medically Managed Detox: Requires at least one of the followin. CIWA greater than 12 2. Seizures within the past 24 hours 3. Delirium tremens within the past 24 hours 4. Hallucinations within the past 24 hours 5. Acute intervention needed for co occurring medical disorder 6. Acute intervention needed for co occurring psychiatric disorder 7. Severe withdrawal that cannot be handled at a lower level of care (continued vomiting, continued diarrhea, abnormal vital signs) requiring intravenous medication and/or fluids 8. Patient presents the following: Acute intervention needed for co-occurring med or psych disorder Admission Criteria Met: Admission criteria met Admission [facility] Chief Complaint: C/O WITHDRAWAL SX'S Allergies/Adverse Reactions: Allergies Allergy/AdvReac Type Severity Reaction Status Date / Time No Known Allergies Allergy Verified 05/15/19 20:46 History of Present Illness: 43 y.o. male with heroin and alcohol dependence here for detox. client presents with c/o worsening withdrawal sx's. cows 8/ ciwa 11 with hx/o schizophrenia on meds but non complaint with it. he is self referred. last admit 04/2019. reports immediately relapsing. denies any significant clean time. drink daily, and heroin use daily. last use earlier today. hx/o 3 or 4 drug overdose. denies hx/ o seizures. + black outs. domiciled, unemployed-ssi, denies legals Exam Limitations: No Limitations - Ebola screening Have you traveled outside of the country in the last 21 days: No Have you had contact with anyone from an Ebola affected area: No Do you have a fever: No - Review of Systems Constitutional: Chills, Loss of Appetite, Night Sweats, Changes in sleep EENT: reports: Nose Congestion Respiratory: reports: No Symptoms reported Cardiac: reports: No Symptoms Reported GI: reports: Poor Appetite, Poor Fluid Intake, Other (acid reflux) : reports: No Symptoms Reported Musculoskeletal: reports: No Symptoms Reported Integumentary: reports: No Symptoms Reported Neuro: reports: No Symptoms reported Endocrine: reports: No Symptoms Reported Hematology: reports: No Symptoms Reported Psychiatric: reports: Orientated x3, Agitated (irritable), Anxious, Depressed ( denies si/hi) Other Systems: Reviewed and Negative Patient History - Patient Medical History Hx Anemia: No Hx Asthma: No Hx Chronic Obstructive Pulmonary Disease (COPD): No Hx Cancer: No Hx Cardiac Disorders: No Hx Congestive Heart Failure: No Hx Hypertension: No Hx Hypercholesterolemia: No Hx Pacemaker: No HX Cerebrovascular Accident: No Hx Seizures: No Hx Dementia: No Hx Diabetes: No Hx Gastrointestinal Disorders: No Hx Liver Disease: No Hx Genitourinary Disorders: No Hx Sexually Transmitted Disorders: No Hx Renal Disease (ESRD): No Hx Thyroid Disease: No Hx Human Immunodeficiency Virus (HIV): No Hx Hepatitis C: No Hx Depression: Yes (Seroquel) Hx Suicide Attempt: No Hx Schizophrenia: Yes (Haldol, cogentin, Depakote) - Patient Surgical History Past Surgical History: Yes Hx Neurologic Surgery: No Hx Cataract Extraction: No Hx Cardiac Surgery: No Hx Lung Surgery: No Hx Breast Surgery: No Hx Breast Biopsy: No Hx Abdominal Surgery: No Hx Appendectomy: No Hx Cholecystectomy: No Hx Genitourinary Surgery: No Hx Section: No Hx Orthopedic Surgery: Yes (LEFT LEG) Anesthesia Reaction: No - PPD History Previous Implant?: Yes Documented Results: Negative w/proof Implanted On Prior [facility] Admission?: Yes Date: 04/27/19 Results: 0 mm PPD to be Administered?: No - Smoking Cessation Smoking history: Current every day smoker Have you smoked in the past 12 months: Yes Aproximately how many cigarettes per day: 20 Cigars Per Day: 0 Hx Chewing Tobacco Use: No Initiated information on smoking cessation: Yes 'Breaking Loose' booklet given: 05/16/19 - Substance & Tx. History Hx Alcohol Use: Yes Hx Substance Use: Yes Substance Use Type: Alcohol, Cocaine, Heroin, Marijuana Hx Substance Use Treatment: Yes ([facility]) - Substances abused Alcohol Substance route: Oral Frequency: Daily Amount used: 1pint Age of first use: 18 Date of last use: 05/14/19 Cocaine Substance route: Smoking Frequency: Daily Amount used: 2 dime Age of first use: 25 Date of last use: 05/13/19 Heroin Substance route: Inhalation Frequency: 3-6 times per week Amount used: 2 bags per day Age of first use: 35 Date of last use: 05/15/19 Marijuana/Hashish Substance route: Smoking Frequency: Daily Amount used: 2 bags Age of first use: 25 Date of last use: 05/15/19 K2/Spice Substance route: Smoking Frequency: 1-2 times per week Amount used: 1 joint Age of first use: 35 Date of last use: 05/13/19 Family Disease History - Family Disease History Family Disease History: Other: Father (alcohol dependence ) Admission Physical Exam S - Vital Signs Vital Signs: Vital Signs - 24 hr 05/15/19 05/16/19 20:43 01:22 Temperature 97.0 F L 97.0 F L Pulse Rate 74 74 Respiratory 18 18 Rate Blood Pressure 114/76 114/76 - Physical General Appearance: Yes: Mild Distress, Irritable, Anxious, Other (restless, itching skin constantly) HEENTM: Yes: EOMI, Normocephalic, Normal Voice, CARYN, Pharynx Normal, Nasal Congestion Respiratory: Yes: Chest Non-Tender, Lungs Clear, Normal Breath Sounds, No Respiratory Distress, No Accessory Muscle Use Neck: Yes: Supple, Trachea in good position Breast: Yes: Breast Exam Deferred Cardiology: Yes: Regular Rhythm, Regular Rate, S1, S2 Abdominal: Yes: Non Tender, Flat, Soft, Increased Bowel Sounds Genitourinary: Yes: Within Normal Limits Back: Yes: Normal Inspection Musculoskeletal: Yes: full range of Motion, Gait Steady Extremities: Yes: Normal Capillary Refill, Normal Range of Motion, Non-Tender, Other (feet with calluses to soles) Neurological: Yes: Fully Oriented, Alert, Motor Strength 5/5, Depressed Affect, Other (paranoid behavior) Integumentary: Yes: Normal Color, Dry, Warm Lymphatic: Yes: Within Normal Limits - Diagnostic (1) Alcohol dependence with uncomplicated withdrawal Current Visit: Yes Status: Acute (2) Opioid dependence with withdrawal Current Visit: Yes Status: Acute (3) Cannabis dependence, uncomplicated Current Visit: Yes Status: Acute (4) Cocaine dependence, uncomplicated Current Visit: Yes Status: Acute (5) Substance-induced anxiety disorder Current Visit: Yes Status: Suspected (6) Substance-induced sleep disorder Current Visit: Yes Status: Suspected (7) Nicotine dependence Current Visit: Yes Status: Chronic Qualifiers: Nicotine product type: cigarettes Substance use status: uncomplicated Qualified Code(s): F17.210 - Nicotine dependence, cigarettes, uncomplicated (8) Schizophrenia Current Visit: Yes Status: Chronic Qualifiers: Schizophrenia type: unspecified Qualified Code(s): F20.9 - Schizophrenia, unspecified Cleared for Admission S - Detox or Rehab [facility] Level of Care: Medically Managed Detox Regimen/Protocol: Methadone/Librium Claeared for Rehab Admission: No Breathalyzer - Breathalyzer Breathalyzer: 0 Urine Drug Screen - Test Device Lot number: [id number] Expiration date: 03/07/21 - Control Is test valid?: Yes - Results Drug screen NEGATIVE: No Urine drug screen results: THC-Marijuana, LADAN-Cocaine, FEN-Fentanyl, MOP-Opiates Inpatient Rehab Admission - Rehab Decision to Admit Inpatient rehab admission?: No
[2019-05-16] MEDS: chlordiazePOXIDE HCL 25 MG CAPSULE PO SCH ×3 (05:11→22:51)
[2019-05-16] MEDS: MAG HYDROX/AL HYDROX/SIMETH 30 ML UNIT-DOSE CUP PO PRN (05:12)
--- NOTE | 2019-05-16 08:46 | CONSULT ---
[facility] Psychiatric Consult - Data Date of interview: 05/16/19 Admission source: Self-referred Identifying data: Mr Arango is a 43 years old [place]born male, unemployed receiving SSI, living in a room in [place] seeking detox treatment for alcohol opioid, cocaine and cannabis Substance Abuse History: Reports history of alcohol, heroin, cocaine marijuana and k2 use. Refer to addiction counselor's summary for further information Medical History: Significant for history of iron deficiency anemia and surgery on left leg. Smokes cigarettes 1 ppd Psychiatric History: Patient is well known to by virtue of multiple admissions to this facility. Most recently he was seen by jingle writer on 04/25/19. History remains consistent. He reports that his first psychiatric contact was at age 20 when he was admitted to [facility] for hearing voices and feeling paranoid like he was being followed. He was diagnosed diagnosed with Paranoid Schizophrenia and prescribed Haldol. Denies any subsequent psychiatric hospitalization. Reports sub optimal adherence to OPD care and medications. Reports he only received outpatient psychiatric treatment at [facility] where he attended for 6 years after his discharge from [facility]. Inpatient detox/rehab and residential program were the places he has been receiving psychiatric care since. He last received psychiatric treatment when he was admitted to this facility for inpatient detox from 04/24 to 04/29/19 at which time he saw jingle writer and he was prescribed Haldol 5 mg/bid, Depakote 500 mg/bid, Cogentin 1 mg/bid and Seroquel 100 mg/hs. Told jingle writer that he relapsed soon after discharge and he did not fill scripts for his medications. Denies previous suicidal attempt. At present, reports hearing voices but unable to comment on their contents and sleeping poorly. However, denies experiencing depressive symptoms, S/H ideations. Requests to resume medications Physical/Sexual Abuse/Trauma History: Denies history of emotional, physical or sexual abuse as well as DV relationship. No service Additional Comment: Reports history of a few misdemeanor arrests on charges of drug possession. Denies being on probation or having an open case Mental Status Exam - Mental Status Exam Alert and Oriented to: Time, Place, Person Cognitive Function: Fair Patient Appearance: Well Groomed Mood: Anxious Affect: Appropriate Patient Behavior: Cooperative Speech Pattern: Clear Voice Loudness: Normal Thought Process: Intact, Goal Oriented Thought Disorder: Not Present Hallucinations: Denies (hearing voices but cannot tell jingle writer what they are saying) Suicidal Ideation: Denies Homicidal Ideation: Denies Sleep: Poorly Appetite: Poor Muscle strength/Tone: Normal Gait/Station: Normal Psychiatric Findings - Problem List ([place] 1, 2,3) (1) Paranoid schizophrenia Current Visit: No Status: Chronic (2) Substance-induced anxiety disorder Current Visit: Yes Status: Acute (3) Substance-induced sleep disorder Current Visit: Yes Status: Acute (4) Alcohol dependence with uncomplicated withdrawal Current Visit: Yes Status: Acute (5) Opioid dependence with withdrawal Current Visit: Yes Status: Acute (6) Cocaine dependence, uncomplicated Current Visit: Yes Status: Acute (7) Cannabis dependence, uncomplicated Current Visit: Yes Status: Acute (8) Nicotine dependence Current Visit: Yes Status: Chronic Qualifiers: Nicotine product type: cigarettes Substance use status: uncomplicated Qualified Code(s): F17.210 - Nicotine dependence, cigarettes, uncomplicated (9) Anemia Current Visit: No Status: Resolved Qualifiers: Anemia type: iron deficiency - Initial Treatment Plan Initial Treatment Plan: 1) Resume Haldol 5 mg po BID, Cogentin 1 mg po BID and Seroquel 100 mg po HS. 2) Continue inpatient detoxification
[2019-05-16] MEDS: BENZTROPINE MESYLATE 1 MG TABLET (FP) PO SCH ×2 (10:35→22:50)
[2019-05-16] MEDS: HALOPERIDOL 5 MG TABLET (FP) PO SCH ×2 (10:35→22:50)
[2019-05-16] MEDS: PRENATAL VITAMINS W/ FOLIC ACID TABLET (FP) PO SCH (10:35)
--- NOTE | 2019-05-16 10:36 | PN ---
S CIWA - CIWA Score Nausea/Vomitin Muscle Tremors: 2 Anxiety: 2 Agitation: 2 Paroxysmal Sweats: 1-Minimal Palms Moist Orientation: 0-Oriented Tacttile Disturbances: 1-Very Mild Itch/Numbness Auditory Disturbances: 1-Very Mild Visual Disturbances: 0-None Headache: 2-Mild CIWA-Ar Total Score: 13 BHS COWS - Scale Resting Pulse: 0= [place] 80 or Below Sweatin= Chills/Flushing Restless Observation: 1= Difficult to Sit Still Pupil Size: 1= Pupils >than Normal Bone or Joint Aches: 2= Severe Diffuse Aches Runny Nose/ Eye Tearin= Nasal Congestion GI Upset > 30mins: 2= Nausea/Diarrhea Tremor Observation of Outstretched Hands: 2= Slight Tremor Visible Yawning Observation: 1= 1-2x During Session Anxiety or Irritability: 2=Irritable/Anxious Goose Flesh Skin: 0=Smooth Skin COWS Score: 13 S Progress Note (SOAP) Subjective: alert,irritable,anxious,interrupted sleep,tremor,pain in the body and back Objective: 05/16/19 10:34 Vital Signs Temperature 97.5 F L 05/16/19 09:29 Pulse Rate 54 L 05/16/19 09:29 Respiratory Rate 18 05/16/19 09:29 Blood Pressure 144/86 05/16/19 09:29 O2 Sat by Pulse Oximetry (%) 05/16/19 10:35 labs pending Assessment: 05/16/19 10:35 withdrawal symptom Plan: continue detox,methadone and librium regimen
[2019-05-16 12:16] LABS: HEMATOCRIT 37.5 % (35.4-49); HEMOGLOBIN 12.8 GM/dL (11.7-16.9); MCH 30.4 pg (25.7-33.7); MEAN CELL VOLUME 89.4 fl (80-96); PLATELET COUNT 218 K/MM3 (134-434); RBC 4.19 M/mm3 (4.00-5.60); RDW 14.4 % (11.9-15.9); WHITE BLOOD COUNT 3.5 K/mm3 (4.0-10.0)
[2019-05-16 13:09] LABS: ALBUMIN 3.4 g/dl (3.4-5.0); BILIRUBIN,TOTAL 0.6 mg/dL (0.2-1); BLOOD UREA NITROGEN 13.6 mg/dL (7-18); CALCIUM 8.8 mg/dL (8.5-10.1); POTASSIUM 4.5 mmol/L (3.5-5.1); TOT PROT 5.8 g/dl (6.4-8.2)
[2019-05-16] MEDS: QUEtiapine FUMARATE 100 MG TABLET (FP) PO SCH (22:50)
[2019-05-16] MEDS: THIAMINE HCL 100 MG TABLET (FP) PO SCH (22:50)
[2019-05-16] MEDS: METHOCARBAMOL 500 MG TABLET PO PRN (22:51)
[2019-05-17] MEDS: chlordiazePOXIDE 5 MG CAPSULE PO SCH ×3 (06:22→22:03)
[2019-05-17] MEDS ORDERED: METHADONE HCL 5 MG TABLET (FOR DETOX USE ONLY) PO ONE (10:00)
[2019-05-17] MEDS: HALOPERIDOL 5 MG TABLET (FP) PO SCH ×2 (11:06→22:03)
[2019-05-17] MEDS: BENZTROPINE MESYLATE 1 MG TABLET (FP) PO SCH ×2 (11:06→22:03)
[2019-05-17] MEDS: PRENATAL VITAMINS W/ FOLIC ACID TABLET (FP) PO SCH (11:06)
--- NOTE | 2019-05-17 13:10 | PN ---
S CIWA - CIWA Score Nausea/Vomitin-Mild Nausea/No Vomiting Muscle Tremors: 1-None Visible, but [place] Anxiety: 1-Mildly Anxious Agitation: 0-Normal Activity Paroxysmal Sweats: No Perspiration Orientation: 0-Oriented Tacttile Disturbances: 0-None Auditory Disturbances: 0-None Visual Disturbances: 0-None Headache: 0-None Present CIWA-Ar Total Score: 3 BHS Progress Note (SOAP) Subjective: Pt here for heroin and alcohol dependence for detox. Pt states he is feeling OK. O: Vital Signs - 24 hr 05/16/19 05/16/19 05/16/19 13:45 17:37 21:15 Temperature 97.6 F 97.4 F L 97 F L Pulse Rate 91 H 65 50 L Respiratory 18 16 16 Rate Blood Pressure 144/93 130/92 133/82 05/17/19 05/17/19 00:30 09:22 Temperature 97.2 F L Pulse Rate 66 Respiratory 18 18 Rate Blood Pressure 105/70 Laboratory Tests 05/16/19 05/16/19 05/16/19 06:00 06:00 06:00 WBC 3.5 L RBC 4.19 Hgb 12.8 Hct 37.5 MCV 89.4 MCH 30.4 MCHC 34.0 RDW 14.4 Plt Count 218 MPV 9.0 Sodium 140 Potassium 4.5 Chloride 106 Carbon Dioxide 30 Anion Gap 5 L BUN 13.6 Creatinine 1.0 Est GFR (CKD-EPI)AfAm 106.36 Est GFR (CKD-EPI)NonAf 91.77 Random Glucose 95 Calcium 8.8 Total Bilirubin 0.6 AST 38 H ALT 30 Alkaline Phosphatase 78 Total Protein 5.8 L Albumin 3.4 RPR Titer Nonreactive a/p: continue alcohol and heroin detox protocols: pt doing well
[2019-05-17] MEDS: QUEtiapine FUMARATE 100 MG TABLET (FP) PO SCH (22:03)
[2019-05-17] MEDS: THIAMINE HCL 100 MG TABLET (FP) PO SCH (22:03)
[2019-05-17] MEDS: ACETAMINOPHEN 325 MG TABLET (FP) PO PRN (22:07)
[2019-05-18] MEDS ORDERED: chlordiazePOXIDE HCL 10 MG CAPSULE PO PRN
[2019-05-18] MEDS: chlordiazePOXIDE HCL 10 MG CAPSULE PO SCH ×3 (06:33→22:58)
[2019-05-18] MEDS ORDERED: METHADONE HCL 10 MG TABLET (FOR DETOX USE ONLY) PO ONE (10:00)
[2019-05-18] MEDS: HALOPERIDOL 5 MG TABLET (FP) PO SCH ×2 (10:15→22:58)
[2019-05-18] MEDS: BENZTROPINE MESYLATE 1 MG TABLET (FP) PO SCH ×2 (10:15→22:58)
[2019-05-18] MEDS: PRENATAL VITAMINS W/ FOLIC ACID TABLET (FP) PO SCH (10:16)
[2019-05-18] MEDS: METHOCARBAMOL 500 MG TABLET PO PRN (10:16)
--- NOTE | 2019-05-18 10:17 | PN ---
[facility] CIWA - CIWA Score Nausea/Vomitin-Mild Nausea/No Vomiting Muscle Tremors: 2 Anxiety: 2 Agitation: 2 Paroxysmal Sweats: No Perspiration Orientation: 0-Oriented Tacttile Disturbances: 1-Very Mild Itch/Numbness Auditory Disturbances: 1-Very Mild Visual Disturbances: 0-None Headache: 2-Mild CIWA-Ar Total Score: 11 BHS COWS - Scale Resting Pulse: 0= [place] 80 or Below Sweatin= Chills/Flushing Restless Observation: 1= Difficult to Sit Still Pupil Size: 1= Pupils >than Normal Bone or Joint Aches: 1= Mild Discomfort Runny Nose/ Eye Tearin= Nasal Congestion GI Upset > 30mins: 1= Stomach Cramp Tremor Observation of Outstretched Hands: 2= Slight Tremor Visible Yawning Observation: 1= 1-2x During Session Anxiety or Irritability: 1=Feels Anxious/Irritable Goose Flesh Skin: 0=Smooth Skin COWS Score: 10 [facility] Progress Note (SOAP) Subjective: alert,irritable,anxious,interrupted sleep,pain in the body Objective: 05/18/19 10:16 Vital Signs Temperature 97.0 F L 05/18/19 09:32 Pulse Rate 61 05/18/19 09:32 Respiratory Rate 18 05/18/19 09:32 Blood Pressure 114/75 05/18/19 09:32 O2 Sat by Pulse Oximetry (%) Assessment: 05/18/19 10:16 withdrawal symptom Plan: continue detox methadone and librium regimen
[2019-05-18] MEDS: ACETAMINOPHEN 325 MG TABLET (FP) PO PRN ×2 (14:27→20:06)
[2019-05-18] MEDS: MAG HYDROX/AL HYDROX/SIMETH 30 ML UNIT-DOSE CUP PO PRN ×2 (14:27→20:06)
[2019-05-18] MEDS: QUEtiapine FUMARATE 100 MG TABLET (FP) PO SCH (22:58)
[2019-05-18] MEDS: THIAMINE HCL 100 MG TABLET (FP) PO SCH (23:00)
[2019-05-19] MEDS ORDERED: chlordiazePOXIDE HCL 10 MG CAPSULE PO ONE (05:00)
[2019-05-19] MEDS ORDERED: METHADONE HCL 5 MG TABLET (FOR DETOX USE ONLY) PO ONE (06:00)
[2019-05-19] MEDS: ACETAMINOPHEN 325 MG TABLET (FP) PO PRN (06:22)
[2019-05-19] MEDS: MAG HYDROX/AL HYDROX/SIMETH 30 ML UNIT-DOSE CUP PO PRN (06:22)
--- NOTE | 2019-05-19 09:26 | DS ---
[facility] Detox Discharge Summary Admission Date: 05/16/19 Discharge Date: 05/19/19 - History Present History: Alcohol Dependence, Cannabis Dependence, Cocaine Dependence, Opioid Dependence - Physical Exam Results Vital Signs: Vital Signs Temperature 96.8 F L 05/19/19 05:00 Pulse Rate 65 05/19/19 05:00 Respiratory Rate 18 05/19/19 05:00 Blood Pressure 128/83 05/19/19 05:00 O2 Sat by Pulse Oximetry (%) Pertinent Admission Physical Exam Findings: pt arrived in withdrawal. - Treatment Hospital Course: Detox Protocol Followed, Detoxed Safely, Responded well, Discharged Condition Good, Rehab Referral Accepted - Medication Discharge Medications: Ambulatory Orders Quetiapine Fumarate [Seroquel -] 100 mg PO HS #30 tab 03/03/16 Benztropine Mesylate [Cogentin -] 1 mg PO BID #60 tablet 03/10/19 Divalproex [Depakote -] 500 mg PO BID #60 tablet.ec 03/10/19 Haloperidol [Haldol -] 5 mg PO BID #60 tablet 03/10/19 - Diagnosis (1) Alcohol dependence with uncomplicated withdrawal Current Visit: Yes Status: Chronic (2) Cannabis dependence, uncomplicated Current Visit: Yes Status: Chronic (3) Cocaine dependence, uncomplicated Current Visit: Yes Status: Chronic (4) Opioid dependence with withdrawal Current Visit: Yes Status: Chronic (5) Substance-induced anxiety disorder Current Visit: Yes Status: Acute (6) Substance-induced sleep disorder Current Visit: Yes Status: Acute (7) Nicotine dependence Current Visit: Yes Status: Chronic Qualifiers: Nicotine product type: cigarettes Substance use status: uncomplicated Qualified Code(s): F17.210 - Nicotine dependence, cigarettes, uncomplicated (8) Schizophrenia Current Visit: Yes Status: Chronic Qualifiers: Schizophrenia type: unspecified Qualified Code(s): F20.9 - Schizophrenia, unspecified (9) Anxiety and depression Current Visit: No Status: Chronic (10) Paranoid schizophrenia Current Visit: No Status: Chronic (11) Anemia Current Visit: No Status: Resolved Qualifiers: Anemia type: iron deficiency - AMA Did Patient Leave Against Medical Advice: No (pt declined rehab; going to his O[facility] at [facility])
[2019-05-19 09:34] VITALS: BP 126/98; PULSE 61; TEMP 96.2
[2019-05-19] MEDS: PRENATAL VITAMINS W/ FOLIC ACID TABLET (FP) PO SCH (09:52)
[2019-05-19] MEDS: BENZTROPINE MESYLATE 1 MG TABLET (FP) PO SCH (09:52)
[2019-05-19] MEDS: HALOPERIDOL 5 MG TABLET (FP) PO SCH (09:52)
== END 2019-05-19 10:20 | disposition home or self-care (01) | DRG 773 ==
LOC: YASAS 16:09 → Y6N 05-16 02:03
PROVIDERS: ADMIT Surgery; ATTEND Surgery
PROC: HZ2ZZZZ Detoxification Services for Substance Abuse Treatment (ICD-10-PCS; principal; 2019-05-16)
DX: F11.23 Opioid dependence with withdrawal (principal); F10.230 Alcohol dependence with withdrawal, uncomplicated; F14.20 Cocaine dependence, uncomplicated; F12.20 Cannabis dependence, uncomplicated; F17.210 Nicotine dependence, cigarettes, uncomplicated; F19.280 Other psychoactive substance dependence with psychoactive substance-induced anxiety disorder; F19.282 Other psychoactive substance dependence with psychoactive substance-induced sleep disorder; F20.9 Schizophrenia, unspecified; F20.0 Paranoid schizophrenia; F41.8 Other specified anxiety disorders; F32.9 Major depressive disorder, single episode, unspecified; D50.9 Iron deficiency anemia, unspecified
CPT/HCPCS: 36415; 80053; 85027; 86593

== ENCOUNTER 2019-05-31 11:42 | Inpatient (IN) | payer OTHER ==
[2019-05-31 13:17] VITALS: BMI 22.4
--- NOTE | 2019-05-31 15:45 | HP ---
COWS - Scale Resting Pulse: 0= [place] 80 or Below Sweatin= Chills/Flushing Restless Observation: 1= Difficult to Sit Still Pupil Size: 0= Normal to Room Light Bone or Joint Aches: 0= None Runny Nose/ Eye Tearin= None GI Upset > 30mins: 0= None Tremor Observation: 0= None Yawning Observation: 0= None Anxiety or Irritability: 1=Feels Anxious/Irritable Goose Flesh Skin: 0=Smooth Skin COWS Score: 3 CIWA Score Nausea/Vomitin-No Nausea/No Vomiting Muscle Tremors: None Anxiety: 2 Agitation: 2 Paroxysmal Sweats: No Perspiration Orientation: 2-Disoriented Date<2 days Tacttile Disturbances: 0-None Auditory Disturbances: 0-None Visual Disturbances: 0-None Headache: 0-None Present CIWA-Ar Total Score: 6 - Admission Criteria OASAS Guidelines: Admission for Medically Managed Detox: Requires at least one of the followin. CIWA greater than 12 2. Seizures within the past 24 hours 3. Delirium tremens within the past 24 hours 4. Hallucinations within the past 24 hours 5. Acute intervention needed for co occurring medical disorder 6. Acute intervention needed for co occurring psychiatric disorder 7. Severe withdrawal that cannot be handled at a lower level of care (continued vomiting, continued diarrhea, abnormal vital signs) requiring intravenous medication and/or fluids 8. Admission [facility] Chief Complaint: seeking help for alcohol and heroin Allergies/Adverse Reactions: Allergies Allergy/AdvReac Type Severity Reaction Status Date / Time No Known Allergies Allergy Verified 05/31/19 13:00 History of Present Illness: 43 y/o/m here for alcohol and heroin use. He was last here at the beginning of this month but had to leave due to a family emergency. He states he does not drink daily but does drink liquor and beer. He denies any history of seizures or blackouts. Last drink was yesterday. He uses 4 bags of Heroin daily, uses by inhaling, last use yesterday. He denies any IV use ever. He uses 3-4 bags of cocaine daily, uses by inhaling and smoking, last use yesterday. He uses 2 bags of Marijuana daily. He uses K2 once or twice a week, one joint at a time. He was previously using Xanax, 1 stick once every few days but states he has not used it in about a month. Patient states he fell earlier today and injured his left knee. He is able to walk without pain. He complains of small abrasions on his left knee. PMHx: Schizophrenia Meds: Haldol 4mg, Cogentin 1mg, Seroquel 200mg, Depakote 500mg Surgical Hx: knee surgery at age 12 Social Hx: He smokes half a pack of cigarettes daily. Drug use as above. He lives in a rented room and is unemployed. - Ebola screening Have you traveled outside of the country in the last 21 days: No Have you had contact with anyone from an Ebola affected area: No Do you have a fever: No - Review of Systems Constitutional: Chills, Loss of Appetite Respiratory: reports: No Symptoms reported Cardiac: reports: No Symptoms Reported GI: reports: Nausea : reports: No Symptoms Reported Musculoskeletal: reports: Joint Pain Integumentary: reports: Other (abrasion left knee) Neuro: reports: Headache, Tremors, Dizziness Endocrine: reports: No Symptoms Reported Hematology: reports: No Symptoms Reported Psychiatric: reports: Agitated, Anxious Patient History - Patient Medical History Hx Anemia: No Hx Asthma: No Hx Chronic Obstructive Pulmonary Disease (COPD): No Hx Cancer: No Hx Cardiac Disorders: No Hx Congestive Heart Failure: No Hx Hypertension: No Hx Hypercholesterolemia: No Hx Pacemaker: No HX Cerebrovascular Accident: No Hx Seizures: No Hx Dementia: No Hx Diabetes: No Hx Gastrointestinal Disorders: No Hx Liver Disease: No Hx Genitourinary Disorders: No Hx Sexually Transmitted Disorders: No Hx Renal Disease (ESRD): No Hx Thyroid Disease: No Hx Human Immunodeficiency Virus (HIV): No Hx Hepatitis C: No Hx Depression: Yes (Seroquel) Hx Suicide Attempt: No Hx Schizophrenia: Yes (Haldol, cogentin, Depakote) Other Medical History: no suicidal or homicidal ideations - Patient Surgical History Past Surgical History: Yes Hx Neurologic Surgery: No Hx Cataract Extraction: No Hx Cardiac Surgery: No Hx Lung Surgery: No Hx Breast Surgery: No Hx Breast Biopsy: No Hx Abdominal Surgery: No Hx Appendectomy: No Hx Cholecystectomy: No Hx Genitourinary Surgery: No Hx Section: No Hx Orthopedic Surgery: Yes (LEFT LEG) Anesthesia Reaction: No - PPD History Documented Results: Negative w/proof Implanted On Prior R Admission?: Yes Date: 04/27/19 Results: 0 mm PPD to be Administered?: Yes - Smoking Cessation Smoking history: Current every day smoker Have you smoked in the past 12 months: Yes Aproximately how many cigarettes per day: 10 Cigars Per Day: 0 Hx Chewing Tobacco Use: No Initiated information on smoking cessation: Yes 'Breaking Loose' booklet given: 05/31/19 - Substance & Tx. History Hx Alcohol Use: Yes Substance Use Type: Alcohol, Cocaine, Heroin, Marijuana - Substances abused Alcohol Substance route: Oral Frequency: 3-6 times per week Amount used: 1 pint + 3-4 beers Age of first use: 18 Date of last use: 05/30/19 Cocaine Substance route: Smoking Frequency: Daily Amount used: 2 dime Age of first use: 25 Date of last use: 05/30/19 Heroin Substance route: Inhalation Frequency: Daily Amount used: 3-4 bags per day Age of first use: 28 Date of last use: 05/31/19 Marijuana/Hashish Substance route: Smoking Frequency: Daily Amount used: 2 bags Age of first use: 25 Date of last use: 05/31/19 K2/Spice Substance route: Smoking Frequency: 1-2 times per week Amount used: 1 joint Age of first use: 35 Date of last use: 05/31/19 Family Disease History - Family Disease History Family Disease History: Other: Father (alcohol dependence ) Admission Physical Exam S - Vital Signs Vital Signs: Vital Signs - 24 hr 05/31/19 12:58 Temperature 97.1 F L Pulse Rate 67 Respiratory 16 Rate Blood Pressure 135/86 - Physical General Appearance: Yes: Mild Distress HEENTM: Yes: EOMI, Normocephalic Respiratory: Yes: Lungs Clear, Normal Breath Sounds, No Accessory Muscle Use Neck: Yes: Supple Cardiology: Yes: Regular Rhythm, Regular Rate, S1, S2 Abdominal: Yes: Normal Bowel Sounds, Non Tender, Soft Musculoskeletal: Yes: Gait Steady Extremities: Yes: Normal Capillary Refill, Tremors. No: Swelling Neurological: Yes: Alert, Motor Strength 5/5 Integumentary: Yes: Dry, Other (large calluses on both feet. 1x1cm abrasion on left knee. no swelling or erythema.) - Diagnostic (1) Alcohol use disorder Current Visit: Yes Status: Acute (2) Opioid use disorder Current Visit: Yes Status: Acute (3) Nicotine use disorder Current Visit: Yes Status: Acute (4) Cocaine use disorder Current Visit: Yes Status: Acute Breathalyzer - Breathalyzer Breathalyzer: 0 Urine Drug Screen - Test Device Lot number: [id number] Expiration date: 03/07/21 - Control Is test valid?: Yes - Results Drug screen NEGATIVE: No Urine drug screen results: THC-Marijuana, LADAN-Cocaine, MOP-Opiates, BZO- Benzodiazepines Inpatient Rehab Admission - Rehab Decision to Admit Inpatient rehab admission?: Yes - Initial Determination Are CD services needed?: Yes Free of communicable disease: Yes Not in need of hospitalization: Yes - Rehab Admission Criteria Previous failed treatment: Yes Poor recovery environment: Yes Comorbidities: Yes Lacks judgement: Yes Patient is meeting Inpatient Rehab admission criteria:: Yes
--- NOTE | 2019-05-31 16:23 | PN ---
Teaching Attending Note Name of Resident: Eliana Amado ATTENDING PHYSICIAN STATEMENT I saw and evaluated the patient. I reviewed the resident's note and discussed the case with the resident. I agree with the resident's findings and plan as documented. SUBJECTIVE: 48 yo with h/o schizophrenia- on meds-here for alcohol cocaine, heroin and K 2 use. Alcohol last drink yesterday- beer and liqour, heroin and cocaine 3-4 bags- inhaling. Cigs 1/2 PPD. Mulitple visits to this facility left AMA prior 2 admissions OBJECTIVE: Vital Signs - 24 hr 05/31/19 12:58 Temperature 97.1 F L Pulse Rate 67 Respiratory 16 Rate Blood Pressure 135/86 abrasion on L knee ASSESSMENT AND PLAN: Pt has minimal withdrawal symptoms- low COWS and CIWA. Will send pt to rehab for polysubstance use
[2019-05-31] MEDS ORDERED: MAGNESIUM HYDROX 2400MG/30ML ORAL SUSPENSION 30 ML CUP PO PRN (16:25)
[2019-05-31] MEDS ORDERED: MAGNESIUM CITRATE 300 ML BOTTLE PO PRN (16:25)
[2019-05-31] MEDS ORDERED: guaiFENesin 200 MG/10 ML 10 ML UNIT-DOSE CUPS PO PRN (16:25)
[2019-05-31] MEDS ORDERED: LOPERAMIDE HCL 2 MG CAPSULE PO PRN (16:25)
[2019-05-31] MEDS ORDERED: P-EPHED 60MG/TRIPROLIDI 2.5MG TABLET PO PRN (16:25)
[2019-05-31] MEDS ORDERED: MENTHOL/PHENOL 1 EACH UD MM PRN (16:25)
[2019-05-31] MEDS ORDERED: NICOTINE POLACRILEX 2 MG GUM BC PRN (16:25)
[2019-05-31] MEDS: THIAMINE HCL 100 MG TABLET (FP) PO SCH (21:23)
[2019-05-31] MEDS: ACETAMINOPHEN 325 MG TABLET (FP) PO PRN (21:25)
[2019-05-31] MEDS ORDERED: MELATONIN 5 MG TABLETS PO PRN (22:00)
[2019-06-01] MEDS: MAG HYDROX/AL HYDROX/SIMETH 30 ML UNIT-DOSE CUP PO PRN ×3 (01:23→21:33)
[2019-06-01] MEDS: IBUPROFEN 400 MG TABLET (FP) PO PRN ×2 (01:26→19:22)
[2019-06-01] MEDS: ACETAMINOPHEN 325 MG TABLET (FP) PO PRN ×2 (06:58→11:36)
[2019-06-01] MEDS: PRENATAL VITAMINS W/ FOLIC ACID TABLET (FP) PO SCH (10:49)
[2019-06-01 14:53] LABS: URINE APPEARANCE CLEAR; URINE BILIRUBIN NEGATIVE (NEGATIVE); URINE COLOR YELLOW; URINE GLUCOSE (UA) NEGATIVE (NEGATIVE); URINE KETONE NEGATIVE (NEGATIVE); URINE LEUK ESTERASE NEGATIVE (NEGATIVE); URINE NITRITE NEGATIVE (NEGATIVE); URINE PROTEIN NEGATIVE (NEGATIVE); URINE UROBILINOGEN 0.2 mg/dL (0.2-1.0)
--- NOTE | 2019-06-01 16:44 | CONSULT ---
[facility] Psychiatric Consult - Data Date of interview: 06/01/19 Admission source: [facility] Identifying data: Direct admission to [address] from the community for this 43 y/o [place]born male, already known to [facility], self-referred for rehabilitaive care to address substance use disorders (cannabis/K2, alcohol , cocaine, heroin) co-morbid with paranoid schizophrenia. Patient is single, no children, domiciled (rented room), unemployed and supported on [facility] benefits. Substance Abuse History: Smoking history: Current every day smoker. Have you smoked in the past 12 months: Yes. Aproximately how many cigarettes per day: 10. Cigars Per Day: 0. Hx Chewing Tobacco Use: No. Initiated information on smoking cessation: Yes. 'Breaking Loose' booklet given: 05/31/19. - Substance & Tx. History. Hx Alcohol Use: Yes. Substance Use Type: Alcohol, Cocaine, Heroin, Marijuana. - Substances abused. Alcohol. Substance route: Oral. Frequency: 3-6 times per week. Amount used: 1 pint + 3-4 beers. Age of first use: 18. Date of last use: 05/30/19. Cocaine. Substance route: Smoking. Frequency: Daily. Amount used: 2 dime. Age of first use: 25. Date of last use : 05/30/19. Heroin. Substance route: Inhalation. Frequency: Daily. Amount used: 3-4 bags per day. Age of first use: 28. Date of last use: . Marijuana/Hashish. Substance route: Smoking. Frequency: Daily. Amount used: 2 bags. Age of first use: 25. Date of last use: 05/31/19. K2/ Spice. Substance route: Smoking. Frequency: 1-2 times per week. Amount used: 1 joint. Age of first use: 35. Date of last use: 05/31/19 Medical History: Patient endorses good physical health with the exception of complaint of plantar sores. Psychiatric History: Onset of psychiatric disturbances : age 20 (admission to [facility] for persecutory delusions + auditory hallucinations). Diagnosed with Paranoid Schizophrenia. Medicated with haloperidol + cogentin. Mr Arango presents with a history of chronic non-adherence to psychiatric OPD care (medications + clinic attendance). Patient has dropped out of psychiatric aftercare since his discharge from [facility] in April 2019. Last prescribed haldol 5 mg/bid + depakote 500 mg/bid + cogentin 1 mg/bid + seroquel 100 mg/hs. No reported history of suicide attempts. Physical/Sexual Abuse/Trauma History: Patient denies history of abuse. Additional Comment: Urine drug screen results: THC-Marijuana, LADAN-Cocaine, MOP- Opiates, BZO-Benzodiazepines. Noted. Mental Status Exam - Mental Status Exam Alert and Oriented to: Time, Place, Person Cognitive Function: Good Patient Appearance: Well Groomed Mood: Nervous Affect: Inappropriate Patient Behavior: Appropriate, Cooperative Speech Pattern: Appropriate Voice Loudness: Normal Thought Process: Goal Oriented Thought Disorder: Bizarre Hallucinations: Denies Suicidal Ideation: Denies Homicidal Ideation: Denies Insight/Judgement: Poor Sleep: Poorly, Difficulty falling asleep Appetite: Good Muscle strength/Tone: Normal Gait/Station: Normal Psychiatric Findings - Problem List ([place] 1, 2,3) (1) Paranoid schizophrenia Current Visit: Yes Status: Chronic (2) Alcohol use disorder Current Visit: Yes Status: Chronic (3) Opioid use disorder Current Visit: Yes Status: Chronic (4) Cocaine use disorder Current Visit: Yes Status: Chronic (5) Cannabis dependence, uncomplicated Current Visit: Yes Status: Chronic (6) Nicotine use disorder Current Visit: Yes Status: Chronic (7) Insomnia Current Visit: Yes Status: Chronic (8) Non-compliance Current Visit: Yes Status: Chronic - Initial Treatment Plan Initial Treatment Plan: Records ([facility]) are revisited. Psychoeducation. Medications resumed as : seroquel 100 mg po hs + haldol 5 mg po bid + cogentin 1 mg po bid. Depakote is held at this time (pending labs). Side effects/ benefits of each drug are discussed with this patient, which includes risk of EPS, tardive dyskinesia, dystonia, neuroleptic malignant syndrome, anticholinergic issues, metabolic syndrome, orthostasis and carediovascular adverse events. Mr Arango gave his verbal consent to . ELADIO/AA meetings. Observation.
[2019-06-01] MEDS: THIAMINE HCL 100 MG TABLET (FP) PO SCH (21:31)
[2019-06-01] MEDS: BENZTROPINE MESYLATE 1 MG TABLET (FP) PO SCH (21:31)
[2019-06-01] MEDS: HALOPERIDOL 5 MG TABLET (FP) PO SCH (21:31)
[2019-06-01] MEDS ORDERED: QUEtiapine FUMARATE 100 MG TABLET (FP) PO SCH (22:00)
[2019-06-01] MEDS ORDERED: DIVALPROEX SODIUM 500 MG TABLET E.C. PO SCH (22:00)
[2019-06-02] MEDS: MAG HYDROX/AL HYDROX/SIMETH 30 ML UNIT-DOSE CUP PO PRN (06:09)
[2019-06-02] MEDS: IBUPROFEN 400 MG TABLET (FP) PO PRN (06:09)
[2019-06-02 06:57] VITALS: BP 141/72; PULSE 72; TEMP 98.1
[2019-06-02] MEDS ORDERED: BISMUTH SUBSALICYLATE 262 MG/15 ML BTL PO PRN (10:03)
[2019-06-02] MEDS: BENZTROPINE MESYLATE 1 MG TABLET (FP) PO SCH (10:30)
[2019-06-02] MEDS: PRENATAL VITAMINS W/ FOLIC ACID TABLET (FP) PO SCH (10:30)
[2019-06-02] MEDS: HALOPERIDOL 5 MG TABLET (FP) PO SCH (10:31)
--- NOTE | 2019-06-02 10:54 | PN ---
[facility] Progress Note (SOAP) Subjective: PT WAS ADMITTED ON 05/31/19 AND STATED "I WANNA LEAVE NOW. I'M GOING TO ANOTHER PROGRAM WITH MY GIRLFRIEND. SHE IS WAITING FOR ME SO WE CAN BE TOGETHER". PT WAS ENCOURAGED TO SPEAK TO COUNSELOR. SPOKE TO PATIENT WHO INSISTS ON LEAVING AMA TODAY, 06/02/19. PT REPORTS HE HAS NO PRIMARY CARE DOCTOR BUT PT HAS [facility] REFERRAL TO [facility]. DENIES S/H/I. Objective: 06/02/19 11:48 ALERT O X 3. Vital Signs - 24 hr 06/02/19 06/02/19 06/02/19 00:30 03:30 06:56 Temperature 98.1 F Pulse Rate 72 Respiratory 18 18 18 Rate Blood Pressure 141/72 Laboratory Tests 06/01/19 10:45 Urine Color Yellow Urine Appearance Clear Urine pH 7.0 D Ur Specific [place] 1.020 Urine Protein Negative Urine Glucose (UA) Negative Urine Ketones Negative Urine Blood Negative Urine Nitrite Negative Urine Bilirubin Negative Urine Urobilinogen 0.2 Ur Leukocyte Esterase Negative Home Medications Medication Instructions Recorded Divalproex [Depakote -] 500 mg PO BID #60 tablet.ec 03/10/19 Benztropine Mesylate [Cogentin -] 1 mg PO BID #60 tablet 06/02/19 Haloperidol [Haldol -] 5 mg PO BID #60 tablet 06/02/19 Quetiapine Fumarate [Seroquel] 100 mg PO HS #30 tablet 06/02/19 Assessment: 06/02/19 11:48 NAD [facility] Inpatient Services Medical - Diagnosis (1) Alcohol use disorder Current Visit: Yes Status: Chronic (2) Cocaine use disorder Current Visit: Yes Status: Chronic (3) Nicotine use disorder Current Visit: Yes Status: Chronic (4) Opioid use disorder Current Visit: Yes Status: Chronic Initialized on 06/02/19 10:54 - END OF NOTE Plan: PT SIGNED OUT AMA. FOLLOW UP WITH [facility] /MEDICAL/MENTAL HEALTH RECOMMENDED.
--- NOTE | 2019-06-02 10:58 | PN ---
[facility] Progress Note Note: Patient is leaving AMA. Scripts for 30 days supply of medications(Seroquel 100 mg/hs, Haldol 5 mg/bid, Cogentin 1 mg/bid) are electronically transmitted to [facility] at [address] [place] [address]
== END 2019-06-02 11:34 | disposition left against medical advice (07) | DRG 770 ==
LOC: YASAS 11:42 → Y5N 16:54
PROVIDERS: ADMIT Surgery; ATTEND Surgery
PROC: HZ42ZZZ Group Counseling for Substance Abuse Treatment, Cognitive-Behavioral (ICD-10-PCS; principal; 2019-05-31)
DX: F10.10 Alcohol abuse, uncomplicated (principal); F11.10 Opioid abuse, uncomplicated; F14.10 Cocaine abuse, uncomplicated; F12.20 Cannabis dependence, uncomplicated; F20.0 Paranoid schizophrenia; F17.200 Nicotine dependence, unspecified, uncomplicated; G47.00 Insomnia, unspecified; Z91.19 Patient's noncompliance with other medical treatment and regimen
CPT/HCPCS: 36415; 80164; 81003

== ENCOUNTER 2021-11-05 13:07 | Inpatient (IN) | payer OTHER ==
[2021-11-05] MEDS ORDERED: IBUPROFEN 400 MG TABLET (FP) PO PRN (15:03)
[2021-11-05] MEDS ORDERED: ONDANSETRON *ODT* 4 MG TABLET SL PRN (15:03)
[2021-11-05] MEDS ORDERED: ACETAMINOPHEN 325 MG TABLET (FP) PO PRN (15:03)
[2021-11-05] MEDS ORDERED: BISMUTH SUBSALICYLATE 524 MG/30 ML PO PRN (15:03)
[2021-11-05] MEDS ORDERED: MENTHOL/PHENOL 1 EACH UD MM PRN (15:03)
[2021-11-05] MEDS ORDERED: MAGNESIUM HYDROX 2400MG/30ML ORAL SUSPENSION 30 ML CUP PO PRN (15:03)
[2021-11-05] MEDS ORDERED: NICOTINE 10 MG CARTRIDGE (INHALER) IH PRN (15:03)
[2021-11-05] MEDS ORDERED: MAG HYDROX/AL HYDROX/SIMETH 30 ML UNIT-DOSE CUP PO PRN (15:03)
[2021-11-05] MEDS ORDERED: MAGNESIUM CITRATE 300 ML BOTTLE PO PRN (15:03)
[2021-11-05 16:25] VITALS: BMI 22.4
[2021-11-05] MEDS: hydrOXYzine PAMOATE 25 MG CAPSULE (FP) PO SCH ×2 (18:58→22:39)
[2021-11-05] MEDS: MELATONIN 5 MG TABLETS PO SCH (22:38)
[2021-11-05] MEDS: THIAMINE HCL 100 MG TABLET (FP) PO SCH (22:39)
[2021-11-06] MEDS: hydrOXYzine PAMOATE 25 MG CAPSULE (FP) PO SCH ×5 (07:05→22:30)
[2021-11-06] MEDS: PRENATAL VITAMINS W/ FOLIC ACID TABLET (FP) PO SCH (10:18)
[2021-11-06] MEDS ORDERED: methaDONE HCL 10 MG TABLET (FOR DETOX USE ONLY) PO ONE (10:48)
[2021-11-06] MEDS ORDERED: cloNIDine HCL 0.1 MG TABLET PO PRN (10:48)
[2021-11-06 10:53] LABS: ALBUMIN 3.2 g/dl (3.4-5.0); BLOOD UREA NITROGEN 16.8 mg/dL (7-18); CALCIUM 9.4 mg/dL (8.5-10.1); CREATININE 0.9 mg/dL (0.55-1.3)
[2021-11-06 10:55] LABS: BILIRUBIN,TOTAL 0.8 mg/dL (0.2-1); TOT PROT 6.6 g/dl (6.4-8.2)
[2021-11-06 11:00] LABS: HEMATOCRIT 36.9 % (35.4-49); HEMOGLOBIN 12.7 GM/dL (11.7-16.9); MCH 29.6 pg (25.7-33.7); MCHC 34.4 g/dl (32.0-35.9); MEAN CELL VOLUME 86.3 fl (80-96); MEAN PLT VOLUME 7.7 fl (7.5-11.1); PLATELET COUNT 440 10^3/uL (134-434); RBC 4.28 M/mm3 (4.00-5.60); RDW 14.9 % (11.9-15.9); WHITE BLOOD COUNT 4.1 K/mm3 (4.0-10.0)
[2021-11-06] MEDS: diazePAM 5 MG TABLET PO SCH ×3 (11:55→22:29)
[2021-11-06] MEDS: ACETAMINOPHEN 325 MG TABLET (FP) PO PRN (15:44)
[2021-11-06] MEDS: METHOCARBAMOL 500 MG TABLET PO PRN (18:16)
[2021-11-06] MEDS: HALOPERIDOL 5 MG TABLET PO SCH (22:30)
[2021-11-06] MEDS: MELATONIN 5 MG TABLETS PO SCH (22:30)
[2021-11-06] MEDS: BENZTROPINE MESYLATE 1 MG TABLET PO SCH (22:30)
[2021-11-06] MEDS: THIAMINE HCL 100 MG TABLET (FP) PO SCH (22:30)
[2021-11-07] MEDS: hydrOXYzine PAMOATE 25 MG CAPSULE (FP) PO SCH ×5 (06:06→22:48)
[2021-11-07] MEDS: diazePAM 5 MG TABLET PO SCH ×4 (06:07→22:48)
[2021-11-07] MEDS ORDERED: methaDONE HCL 10 MG TABLET (FOR DETOX USE ONLY) ONE (08:48)
[2021-11-07] MEDS: diazePAM 5 MG TABLET PO PRN (08:59)
[2021-11-07] MEDS: PRENATAL VITAMINS W/ FOLIC ACID TABLET (FP) PO SCH (10:47)
[2021-11-07] MEDS: HALOPERIDOL 5 MG TABLET PO SCH ×2 (10:48→22:48)
[2021-11-07] MEDS: BENZTROPINE MESYLATE 1 MG TABLET PO SCH ×2 (10:48→22:48)
[2021-11-07] MEDS: THIAMINE HCL 100 MG TABLET (FP) PO SCH (22:48)
[2021-11-07] MEDS: DIVALPROEX SODIUM 250 MG TABLET E.C. PO SCH (22:48)
[2021-11-07] MEDS: MELATONIN 5 MG TABLETS PO SCH (22:48)
[2021-11-08] MEDS: diazePAM 5 MG TABLET PO SCH ×2 (06:18→13:59)
[2021-11-08] MEDS: hydrOXYzine PAMOATE 25 MG CAPSULE (FP) PO SCH ×4 (06:19→17:45)
[2021-11-08] MEDS: ACETAMINOPHEN 325 MG TABLET (FP) PO PRN (08:10)
[2021-11-08] MEDS: diazePAM 5 MG TABLET PO PRN (08:28)
[2021-11-08] MEDS: BENZTROPINE MESYLATE 1 MG TABLET PO SCH (09:51)
[2021-11-08] MEDS: DIVALPROEX SODIUM 250 MG TABLET E.C. PO SCH (09:51)
[2021-11-08] MEDS: PRENATAL VITAMINS W/ FOLIC ACID TABLET (FP) PO SCH (09:51)
[2021-11-08] MEDS: HALOPERIDOL 5 MG TABLET PO SCH (09:52)
[2021-11-08] MEDS ORDERED: methaDONE HCL 10 MG TABLET (FOR DETOX USE ONLY) PO ONE (10:00)
[2021-11-08] MEDS: METHOCARBAMOL 500 MG TABLET PO PRN (14:46)
[2021-11-08 17:06] VITALS: BP 133/84; PULSE 97; TEMP 96.9
[2021-11-09] MEDS ORDERED: diazePAM 5 MG TABLET PO SCH (06:00)
[2021-11-10] MEDS ORDERED: diazePAM 5 MG TABLET PO ONE (06:00)
[2021-11-10] MEDS ORDERED: methaDONE HCL 10 MG TABLET (FOR DETOX USE ONLY) PO ONE (10:00)
== END 2021-11-08 19:21 | disposition left against medical advice (07) | DRG 770 ==
LOC: YASAS 13:07 → Y3N 16:15
PROVIDERS: ADMIT Allergy & Immunology; ATTEND Allergy & Immunology
PROC: HZ2ZZZZ Detoxification Services for Substance Abuse Treatment (ICD-10-PCS; principal; 2021-11-05)
DX: F11.23 Opioid dependence with withdrawal (principal); F10.230 Alcohol dependence with withdrawal, uncomplicated; F14.20 Cocaine dependence, uncomplicated; F12.20 Cannabis dependence, uncomplicated; F17.210 Nicotine dependence, cigarettes, uncomplicated; F20.0 Paranoid schizophrenia; G47.00 Insomnia, unspecified; M54.50 Low back pain, unspecified; G89.29 Other chronic pain; R63.4 Abnormal weight loss; Z68.22 Body mass index [BMI] 22.0-22.9, adult; Z91.19 Patient's noncompliance with other medical treatment and regimen
CPT/HCPCS: 36415; 80053; 80164; 84132; 85027; 86780; C9803; J0735; U0003; U0005